=== PATIENT | female | born 1980 | race Caucasian/White ===

== ENCOUNTER 2022-06-23 16:41 | Outpatient (REF) | payer OTHER, SELFPAY ==
[2022-06-23 17:32] LABS: Influenza A PCR NEGATIVE (Negative); Influenza B PCR NEGATIVE (Negative); Resp Syncy Virus RNA Qual PCR NEGATIVE (Negative); SARS COV2 PCR INHOUSE POSITIVE (Negative)
== END 2022-06-23 16:42 | disposition home or self-care (01) ==
LOC: HO.LNP 16:41
PROVIDERS: Visit Provider Nurse Practitioner Family
DX: Z20.822 Contact with and (suspected) exposure to COVID-19 (principal); J06.9 Acute upper respiratory infection, unspecified
CPT/HCPCS: 0241U

== ENCOUNTER 2022-11-20 11:41 | Outpatient (REF) | payer OTHER, SELFPAY ==
--- NOTE | ~2022-11-20 | MM_ITS ---
EXAMINATION: MM SCREENING DIGITAL BREAST TOMOSYNTHESIS, BILATERAL CLINICAL INFORMATION: Screening. Asymptomatic. The lifetime risk of breast cancer based on the Tyrer-Cuzick Model is 8%. COMPARISON: Mammography: 07/05/2020, 01/10/2019 TECHNIQUE: Digital breast tomosynthesis is performed in both the craniocaudal and mediolateral oblique views along with computer-aided detection (CAD). Synthesized 2D images are generated from the tomosynthesis. FINDINGS: There are scattered areas of fibroglandular density (ACR BI-RADS breast composition Category b). There are no significant masses, abnormal calcifications, or other abnormalities. Parenchymal pattern is similar to prior studies. There is no developing density or architectural abnormality. The axilla and skin contours are unremarkable. No significant changes. MM/MM tomosynthesis screening BI IMPRESSION: No mammographic evidence of malignancy. ASSESSMENT: BI-RADS 1: Negative RECOMMENDATION: Routine annual mammography screening. This patient's information was entered into a reminder system with a target due date for their next mammogram.
== END 2022-11-20 11:42 | disposition home or self-care (01) ==
LOC: HO.MAMMO 11:41
PROVIDERS: PCP Internal Medicine; Visit Provider Internal Medicine
DX: Z12.31 Encounter for screening mammogram for malignant neoplasm of breast (principal)
CPT/HCPCS: 77063; 77067

== ENCOUNTER 2023-09-24 12:49 | Emergency (ER) | payer OTHER, SELFPAY ==
--- NOTE | ~2023-09-24 | CT_ITS ---
EXAMINATION: CT ABDOMEN AND PELVIS WITH CONTRAST CLINICAL INFORMATION: Left lower quadrant pain. Rectal bleeding. COMPARISON: Pelvic ultrasound June 29, 2016, December 25, 2014 TECHNIQUE: Multidetector volumetric images were obtained from the superior aspect of the liver through the pubic symphysis following administration 85 mL of Omnipaque 350 intravenous contrast. Sagittal and coronal reformatted images were obtained on the technologist's workstation. Oral contrast: No This CT examination was performed using dose optimization techniques as appropriate, variously including the following: *Automated exposure control *Adjustment of mA and/or kV according to patient size (this includes techniques or standardized protocols for targeted exams where dose is matched to indication/reason for exam; i.e. extremities or head) *Use of iterative reconstruction technique DLP: 678 mGy-cm FINDINGS: LUNG BASES: The visualized lung bases are unremarkable. LIVER, GALLBLADDER, AND BILIARY TREE: The liver is normal in size, shape, and attenuation. No focal hepatic lesion or biliary ductal dilatation is present. The gallbladder is unremarkable with no evidence of radiopaque gallstones, gallbladder wall thickening, or obvious pericholecystic inflammatory changes. PANCREAS: Unremarkable. SPLEEN: Unremarkable. ADRENAL GLANDS: Unremarkable. KIDNEYS AND URETERS: 3 mm nonobstructive stone lower pole of the left kidney. No stone in the right kidney. There is no ureteral calculus. No hydronephrosis. BLADDER: Unremarkable. GASTROINTESTINAL TRACT: No acute abnormality. There is no bowel wall thickening /edema. There is no bowel obstruction. There is a moderate to large volume of stool in the colon. The appendix is normal . The small bowel loops are unremarkable. The stomach is normal. There is no hiatal hernia. ABDOMINAL WALL: No significant hernia is appreciated. LYMPH NODES: Normal. VASCULAR: Unremarkable. PELVIC VISCERA: Uterus may be absent. Enlarged uterus noted on the pelvic ultrasound of June 29, 2016 is not evident on this study. Correlate with history. Within the left anterior pelvis there is an ovoid lesion. Lesion measures 4.2 x 3.2 x 3.4 cm. This has a low-density central region and a mildly hyperintense thin rim. This has a density measurement centrally at 18 Hounsfield units, mildly complex fluid. The collection has no air component. There is some subtle stranding in the adjacent mesenteric fat. This lesion does border the sigmoid colon. Uncertain therefore whether this is related to a left ovarian/adnexal lesion versus a bowel lesion. OSSEOUS STRUCTURES: Unremarkable. CT/CT abdomen pelvis w IV con IMPRESSION: 1. Ovoid lesion in the left anterior pelvis measuring 4.2 x 3.2 x 3.4 cm. Uncertain whether this is related to a left ovarian/adnexal lesion versus a bowel lesion. Consider pelvic ultrasound for further assessment. 2. 3 mm nonobstructive stone lower pole left kidney. Fleischner guidelines were followed.
--- NOTE | ~2023-09-24 | US_ITS ---
EXAMINATION: US PELVIS CLINICAL INFORMATION: Left lower quadrant pain COMPARISON: None available. TECHNIQUE: Ultrasound of the pelvis is performed using both transabdominal and transvaginal transducers along with Doppler. Transvaginal imaging is performed due to inadequate visualization transabdominally. FINDINGS: Uterus: The uterus has been surgically removed. Endovaginal strip is visualized. Adnexa: Right ovary measures 3.5 x 2.6 x 3.1 cm. Volume 14.4 mL. There are multiple complex lesions right ovary. 1. Solid hypoechoic avascular lesion with central cystic area. It measures 2.0 x 1.9 x 2.1 cm. 2. Central lesion with vascular area and irregular borders measuring 1.6 x 1.2 x 1.6 cm. 3. Complex area measuring 1.8 x 1.8 x 1.8 cm and central cystic area measuring 1.2 x 1.4 x 1.4 cm. Previously right ovary measured 3.5 x 2.3 x 2.9 cm and volume 1.7 mL. Left ovary measures 4.9 x 2.8 x 3.4 cm. Volume 24.4 mL. There is a large hypoechoic area measuring 4.6 x 2.5 x 3.2 cm with central echogenicity question hemorrhagic cyst. On Doppler exam there is normal arterial and venous flow seen in both ovaries. There is no free fluid in cul-de-sac. US/US pelvic ovarian doppler IMPRESSION: Enlarged heterogeneous right ovary with multiple complex lesions. 3 major lesions have been measured as described above. Appearance is significantly different from the CT picture. Epithelial lesion such as mucinous or serous adenoma or adenocarcinoma cannot be excluded. Recommend MRI pelvis with and without contrast or a follow-up ultrasound after 2 or 3 cycles if patient still has menses. Hemorrhagic moderate-sized cyst left ovary. Uterus has been surgically removed. No free fluid.
--- NOTE | ~2023-09-24 | US_ITS ---
EXAMINATION: US PELVIS CLINICAL INFORMATION: Left lower quadrant pain COMPARISON: None available. TECHNIQUE: Ultrasound of the pelvis is performed using both transabdominal and transvaginal transducers along with Doppler. Transvaginal imaging is performed due to inadequate visualization transabdominally. FINDINGS: Uterus: The uterus has been surgically removed. Endovaginal strip is visualized. Adnexa: Right ovary measures 3.5 x 2.6 x 3.1 cm. Volume 14.4 mL. There are multiple complex lesions right ovary. 1. Solid hypoechoic avascular lesion with central cystic area. It measures 2.0 x 1.9 x 2.1 cm. 2. Central lesion with vascular area and irregular borders measuring 1.6 x 1.2 x 1.6 cm. 3. Complex area measuring 1.8 x 1.8 x 1.8 cm and central cystic area measuring 1.2 x 1.4 x 1.4 cm. Previously right ovary measured 3.5 x 2.3 x 2.9 cm and volume 1.7 mL. Left ovary measures 4.9 x 2.8 x 3.4 cm. Volume 24.4 mL. There is a large hypoechoic area measuring 4.6 x 2.5 x 3.2 cm with central echogenicity question hemorrhagic cyst. On Doppler exam there is normal arterial and venous flow seen in both ovaries. There is no free fluid in cul-de-sac. US/US pelvic and transvaginal IMPRESSION: Enlarged heterogeneous right ovary with multiple complex lesions. 3 major lesions have been measured as described above. Appearance is significantly different from the CT picture. Epithelial lesion such as mucinous or serous adenoma or adenocarcinoma cannot be excluded. Recommend MRI pelvis with and without contrast or a follow-up ultrasound after 2 or 3 cycles if patient still has menses. Hemorrhagic moderate-sized cyst left ovary. Uterus has been surgically removed. No free fluid.
[2023-09-24 13:08] VITALS: BP 146/90; PULSE 89; RESP 20; TEMP 36.8; O2SAT 97; BMI 30.1
--- NOTE | 2023-09-24 13:10 | ED.GENADULT ---
HPI - General Adult General Chief complaint: General Medical Stated complaint: Left Quadrant Pain sent By Dr Shane Seen by Provider: 09/24/23 13:39 Source: patient Mode of arrival: ambulatory Limitations: no limitations History of Present Illness HPI narrative: 43-year-old female w history of asthma presents for evaluation of lower abdominal pain and blood in stools x 3 weeks. The pain is worst in the LLQ and is alleviated by having bowel movements. She originally noted the blood intermittently on toilet paper after wiping, but this week she has noticed it in the toilet bowel and streaked in the stool every day. She denies constipation and diarrhea. No fevers, chills, nausea, or vomiting. No chest pain, palpitations, or SOB. No dysuria or hematuria. No vaginal bleeding. Her family history is notable for colitis on her mother's side, and colorectal and endometrial cancer on her father's side. Her surgical history is remarkable for an ovary sparing hysterectomy. She has never had a colonoscopy before. She was sent here by the provider at urgent care for tenderness to palpation of her abdomen. Related Data Home Medications Medication Instructions Recorded Confirmed albuterol sulfate 90 mcg/actuation 2 puff inhalation Q6H PRN 04/11/21 06/23/22 aerosol inhaler (Ventolin HFA) Previous Rx's Medication Instructions Recorded dextromethorphan HBr 20 mg/15 mL 20 mg (15 mL) PO DAILY@1000,2200 06/23/22 oral solution PRN cough 7 days #118 mL fluticasone propionate 50 1 spray intranasal Q12H 30 days 06/23/22 mcg/actuation nasal #16 grams spray,suspension (Flonase Allergy Relief) Allergies Allergy/AdvReac Type Severity Reaction Status Date / Time codeine [Codeine] Allergy Unknown AGITATION Verified 06/23/22 14:37 amoxicillin [Augmentin] AdvReac Unknown rash Verified 06/23/22 14:37 clavulanic acid [Augmentin] AdvReac Unknown rash Verified 06/23/22 14:37 Codeine Sulfate AdvReac Unknown can't sleep Uncoded 06/23/22 14:37 Review of Systems Review of Systems: Constitutional : No Weight loss, No Fever, No Chills ENT/Mouth :? No sore throat, No Rhinorrhea Eyes: No Swelling, No Redness Cardiovascular : No Chest Pain, No SOB, No Edema Respiratory : No Cough, No Sputum, No Wheezing Gastrointestinal : No Nausea, No Vomiting, No Diarrhea, +abdominal Pain, + Hematochezia Genitourinary : No Dysuria, No Urinary Frequency, No Hematuria, No Urgency Musculoskeletal : No joint pain, No Myalgias, No Joint Swelling Skin : No Skin Lesions, No rash Neuro : No Weakness, No Numbness, No Dizziness, No Headache All other systems reviewed and are negative. Yes all other systems are reviewed and are negative [facility] Social History Social History Advance Directives: No Advance Directives Information Provided: No Patient : No Physical Exam ED Vital Signs: Vital Signs - 24 hr 09/24/23 13:08 09/24/23 13:33 09/24/23 15:32 Temperature 98.2 F 98.3 F Pulse Rate 89 87 79 Respiratory Rate 20 18 16 Blood Pressure 146/90 H 149/80 H 137/88 Pulse Oximetry 97 100 99 Oxygen Delivery Method Room Air Room Air Room Air BMI result Body Mass Index 30.1 vss Appearance: Alert.? Oriented X3.? No acute distress.? Head: Normocephalic, atraumatic, no step-offs or deformities Neck: Normal inspection.? Neck supple.? CVS: Normal heart rate and rhythm.? Pulses normal.? Respiratory: No respiratory distress.? Breath sounds normal.? Abdomen: Soft and nontender. LLQ mass noted on palpation.?Normoactive bowel sounds in all 4 quadrants. Negative Corrales's, McBurney's, and Rosving sign. No guarding or rebound tenderness. Skin: Skin warm and dry.? Normal skin color.? Normal skin turgor.? Extremities: No lower extremity edema.? No calf ttp. 5/5 strength to bilateral upper and lower extremities. 2+ peripheral pulses bilaterally. Back: No midline tenderness, no C-spine tenderness, full range of motion, no CVA tenderness bilaterally Neuro: Oriented X 3.? No motor deficit.? No sensory deficit. CN 2-12 intact Course Course Course Narrative: RME performed by Norma Ramos PA-C. Patient is a 43 year old assigned female at presenting to the emergency department with bright red blood in her stools and left lower quadrant abdominal pain. Labs ordered. Patient placed back in the waiting room pending room availability and results. Reevaluation(s) Reevaluation #1: CBC unremarkable. Stable H&H. Chemistry no acute findings requiring intervention. UA without infection. Viral testing negative. CT abdomen pelvis ovoid lesion left anterior pelvis, uncertain whether it is ovarian or sigmoid. Ultrasound ordered. Patient trying to give stool sample Sign out to Tor Espinoza PA-C Time: 15:56 Reevaluation #2: Received sign-out with the patient stable condition pending ultrasound. Time: 16:04 Reevaluation #3: Ultrasound returned demonstrating multiple lesions on the right ovary. She is status post hysterectomy. Patient is currently feeling well at this time. She denies any abdominal pain, nausea or vomiting. Patient states that she has a PCP at the [facility], Dr. John. She does not have a current OBGYN. I had an extensive discussion with the patient regarding the importance of close follow-up as well as ultrasound findings which could be benign or malignant, that this is not able to be determined today but important for close follow-up for definitive cause. The patient expresses understanding of this. She feels comfortable with discharge plan home. She will call her PCP on Wednesday as well as OBGYN referral. No further questions at this time. Time: 17:18 Medications Administered Discontinued Medications Generic Name Dose Route Start Last Admin Trade Name Freq PRN Reason Stop Dose Admin Iohexol 85 ml 09/24/23 14:47 09/24/23 14:47 Iohexol 350 Mg/Ml 100 Ml Infus..Btl IV 09/24/23 14:48 85 ml ONCE ONE Administration Medical Decision Making Medical Decision Making MDM Narrative: 43-year-old female presents with abdominal pain LLQ > RLQ and rectal bleeding x 3 weeks. No fevers, chills, or vomiting. PE: LLQ mass noted on palpation of the abdomen. ?No tenderness, rebound, or guarding. History and physical concerning for diverticulitis, hemorrhoids, IBD, IBS, unlikely appendicitis, pancreatitis, cholecystitis, toxic zhang colon, colitis, acute abdomen, malignancy Plan: Labs, imaging, UA Differential Diagnosis Differential Diagnoses: The differential diagnosis associated with the presentation includes History and physical concerning for diverticulitis, hemorrhoids, IBD, IBS, unlikely appendicitis, pancreatitis, cholecystitis, toxic zhang colon, colitis, acute abdomen, malignancy Admission/Observation Consideration of admission/observation: Escalation of care including admission/observation considered posisble Lab Data 09/24/23 13:28 09/24/23 13:28 Labs: Lab Results 09/24/23 09/24/23 09/24/23 Range/Units 13:26 13:28 13:47 WBC 9.0 (4.8-10.8) X10*3/uL RBC 4.65 (4.20-5.50) X10*6/uL Hgb 14.4 (12.0-16.0) g/dl Hct 41.9 (37.0-47.0) % MCV 90.1 (80.0-98.0) fL MCH 31.0 (27.0-33.0) pg MCHC 34.4 (31.0-35.0) g/dl RDW 12.2 (11.0-16.0) % Plt Count 209 (160-400) X10*3/uL MPV 10.2 (9.4-12.3) fL Immature Gran % (Auto) 0.3 (0.0-0.4) % Neut % (Auto) 64.8 (45-73) % Lymph % (Auto) 27.7 (20-40) % Guthrie % (Auto) 5.5 (2-11) % Eos % (Auto) 1.4 (0-4) % Baso % (Auto) 0.3 (0-2) % Lymph # (Auto) 2.5 (1.2-4.9) X10*3/uL Guthrie # (Auto) 0.5 (0.1-1.2) X10*3/uL Eos # (Auto) 0.1 (0.0-0.4) X10*3/uL Baso # (Auto) 0.0 (0.0-0.2) X10*3/uL Abs Immat Gran (auto) 0.03 (0.00-0.03) X10*3/uL Absolute Neuts (auto) 5.8 (2.0-8.3) x10*3/uL Absolute Nucleated RBC 0.000 (0.0-0.012) X10*3/uL Nucleated RBC % (auto) 0.0 (0.0-0.2) /100WBC Sodium 139 (135-145) mmol/L Potassium 3.7 (3.3-5.1) mmol/L Chloride 107 (96-108) mmol/L Carbon Dioxide 25 (22-29) mmol/L Anion Gap 11 L (12-20) BUN 8 L (9-16) mg/dL Creatinine 0.77 (0.5-1.4) mg/dL Estim Creat Clear Calc 90.7 Estimated GFR > 60 Random Glucose 84 (60-115) mg/dL Calcium 9.0 (8.4-10.2) mg/dL Magnesium 2.0 (1.6-2.6) mg/dL Total Bilirubin 0.4 (0.0-1.0) mg/dL AST 15 (5-31) U/L ALT 13 (0-31) U/L Alkaline Phosphatase 58 (39-117) U/L Total Protein 6.9 (6.5-8.0) g/dL Albumin 4.1 (3.5-5.0) g/dL Urine Color Yellow Urine Appearance Clear Urine pH 6.0 (5.0-9.0) Ur Specific [place] 1.020 (1.005-1.025) Urine Protein Negative (Neg-Trace) mg/dL Urine Glucose (UA) Negative (Negative) mg/dL Urine Ketones 40 (Negative) mg/dL Urine Blood Moderate (2+) H (Negative) Urine Nitrite Negative (Negative) Ur Leukocyte Esterase Negative (Negative) Urine RBC >20 H (0-2) /HPF Urine WBC 0-5 (0-5) /HPF Ur Squamous Epith Cells 6-10 (0-2) /HPF Urine Bacteria Trace (None Seen) Hyaline Casts 0-2 (0-2) /LPF Influenza Type A (PCR) NEGATIVE (Negative) Influenza Type B (PCR) NEGATIVE (Negative) RSV RNA Qual (PCR) NEGATIVE (Negative) SARS-CoV-2 RNA (RT-PCR) NEGATIVE (Negative) Critical Care Time Critical Care Time Critical Care Time: No Discharge Plan Discharge Clinical Impression: Abdominal pain, BRBPR (bright red blood per rectum), Ovary anomaly Patient Disposition: Home, Self-Care Instructions: Rectal Bleeding (ED), Abdominal Pain (ED) Additional Instructions: Your ultrasound today shows lesions on the right ovary. It is unclear at this time what the exact diagnosis is and therefore he will need very close follow-up. Radiologist has recommended MRI of the pelvis with and without contrast for further evaluation. Follow-up with your primary care provider. Call 1st thing Wednesday morning to schedule appointment to be seen this week. Follow-up with the OBGYN referral, Dr. Kwon. Call 1st thing Wednesday morning to schedule appointment to be seen this week. Take your medications as prescribed. If you were prescribed antibiotics today, it is important that you take your medication to their entirety, do not skip any doses, do not finish them early. Follow-up with your primary care provider this week. Return to the emergency department with new or worsening symptoms. Such as fevers, chills, chest pain, shortness of breath, nausea, vomiting, dizziness, headache, vision changes, lethargy In case of emergency call 911 Please follow-up with GI and OBGYN information below Prescriptions: No Action albuterol sulfate [Ventolin HFA] 90 mcg/actuation HFA aerosol inhaler 2 puff inhalation Q6H PRN fluticasone propionate [Flonase Allergy Relief] 50 mcg/actuation spray,suspension 1 spray intranasal Q12H 30 Days Qty: 16 0RF Rx Instructions: administer into each nostril dextromethorphan HBr 20 mg/15 mL solution 20 mg PO DAILY@1000,2200 PRN (Reason: cough) 7 Days Qty: 118 0RF Rx Instructions: Daily at HS Referrals: [facility] [Provider Group] - 1 day Kusum Regan MD [Primary Care Provider] - 2 days Ayo Kwon MD [Physician] - 1 day Stand Alone Forms: Work/School Release
[2023-09-24 13:33] VITALS: BP 149/80; PULSE 87; RESP 18; TEMP 36.8; O2SAT 100
[2023-09-24 13:34] LABS: MANUAL DIFF FLAG NO
[2023-09-24 13:36] LABS: Basophils Percent Auto 0.3 % (0-2); Eosinophils Absolute Auto 0.1 X10*3/uL (0.0-0.4); Eosinophils Percent Auto 1.4 % (0-4); Hematocrit 41.9 % (37.0-47.0); Hemoglobin 14.4 g/dl (12.0-16.0); Imm Gran Abs Auto 0.03 X10*3/uL (0.00-0.03); Imm Gran Pct Auto 0.3 % (0.0-0.4); Lymphocytes Absolute Auto 2.5 X10*3/uL (1.2-4.9); Lymphocytes Percent Auto 27.7 % (20-40); Mean Corpuscular HGB Conc 34.4 g/dl (31.0-35.0); Mean Corpuscular Volume 90.1 fL (80.0-98.0); Mean Platelet Volume 10.2 fL (9.4-12.3); Monocytes Absolute Auto 0.5 X10*3/uL (0.1-1.2); Monocytes Percent Auto 5.5 % (2-11); Neutrophils Absolute Auto 5.8 x10*3/uL (2.0-8.3); Neutrophils Percent Auto 64.8 % (45-73); Platelet Count 209 X10*3/uL (160-400); Red Blood Count 4.65 X10*6/uL (4.20-5.50); Red Cell Distribution Width 12.2 % (11.0-16.0)
--- NOTE | 2023-09-24 13:37 | PC.NURSE ---
a&ox4, vss and up to date. pt comes in today d/t 02/17 left lower abdominal pain. radiates across entire lower abdomen. pt verbalizes bright red blood in stool since thanks. pt attempted to see PCP - no appts. went to urgent care where she was then sent here. denies n/v/d/any urinary sx. tender upon palpation. respirations even/unlabored. call bel placed within reach.
--- NOTE | 2023-09-24 13:47 | PC.NURSE ---
provide bedside assessing pt. urine obtained/sent to lab.
[2023-09-24 14:00] LABS: Appearance Urine Clear; Color Urine Yellow; Glucose Urine UA Negative (Negative); Leukocyte Esterase Urine Negative (Negative); Nitrite Urine Negative (Negative); UMIC TRIGGER UACC YES; Urine Blood Moderate (2+) (Negative); Urine Ketones 40 mg/dL (Negative); Urine Protein Negative (Neg-Trace)
[2023-09-24 14:02] LABS: Alanine Aminotransferase 13 U/L (0-31); Albumin Level 4.1 g/dL (3.5-5.0); Alkaline Phosphatase 58 U/L (39-117); Anion Gap 11 (12-20); Aspartate Amino Transferase 15 U/L (5-31); Bilirubin Total 0.4 mg/dL (0.0-1.0); Blood Urea Nitrogen 8 mg/dL (9-16); Carbon Dioxide 25 mmol/L (22-29); Chloride 107 mmol/L (96-108); Creatinine Clr Calc Pharmacy 90.7; Estimated Glomerular Filt Rate > 60; Glucose Random 84 mg/dL (60-115); Potassium 3.7 mmol/L (3.3-5.1); Sodium 139 mmol/L (135-145); Total Protein 6.9 g/dL (6.5-8.0)
[2023-09-24 14:05] LABS: Bacteria Urine Trace (None Seen); Hyaline Casts Urine 0-2 /LPF (0-2); RBC Urine >20 /HPF (0-2); WBC Urine 0-5 /HPF (0-5)
--- NOTE | 2023-09-24 14:06 | PC.NURSE ---
20gIV placed in the right AC w/o complications - pt waiting to go to CT at this time.
[2023-09-24 14:12] LABS: Influenza A PCR NEGATIVE (Negative); Influenza B PCR NEGATIVE (Negative); Resp Syncy Virus RNA Qual PCR NEGATIVE (Negative); SARS COV2 PCR INHOUSE NEGATIVE (Negative)
[2023-09-24] MEDS: iohexoL 350 MG/ML 100 ML INFUS..BTL 85 ML IV (14:47)
[2023-09-24 15:32] VITALS: BP 137/88; PULSE 79; RESP 16; O2SAT 99
--- NOTE | 2023-09-24 15:33 | PC.NURSE ---
vss and up to date at this time. pt verbalizing pain level decreased to a 2/10 at this time. pt awaiting results from CT at this time. respirations remain even/unlabored. call marie placed within reach.
--- NOTE | 2023-09-24 15:50 | PC.NURSE ---
pt speaking w/ providers about results of CT at this time - pt aware of plan of care.
--- NOTE | 2023-09-24 15:55 | PC.NURSE ---
pt to US at this time.
== END 2023-09-24 17:51 | disposition home or self-care (01) ==
PROVIDERS: Physician Assistant Medical; Emergency Provider Emergency Medicine Emergency Medical Services; PCP Internal Medicine
DX: R10.32 Left lower quadrant pain (principal); R10.31 Right lower quadrant pain; K92.1 Melena; N83.9 Noninflammatory disorder of ovary, fallopian tube and broad ligament, unspecified; Z20.822 Contact with and (suspected) exposure to COVID-19; Z20.828 Contact with and (suspected) exposure to other viral communicable diseases; Z79.899 Other long term (current) drug therapy
CPT/HCPCS: 0241U; 74177; 76830; 76856; 80053; 81001; 83735; 85025; 93975; 99284; Q9967

== ENCOUNTER 2023-10-01 09:01 | Outpatient (AMB) | payer OTHER, SELFPAY ==
[2023-10-01 09:04] VITALS: BP 110/70; PULSE 86; O2SAT 97; BMI 30.5
--- NOTE | 2023-10-01 09:04 | MHC.PC.OV ---
Vital Signs 10/01/23 09:04 Height 5 ft 3 in Weight 172 lb BMI 30.5 BP 110/70 Blood Pressure Location Rt brachial Position Sitting Pulse 86 Pulse Source Pulse Oximeter Pulse Oximetry (%) 97 Oxygen Delivery Method Room Air Intake Visit Reasons: Re-Est care Seen in [facility] Intake Note: pt is here for re establish care Campaign Associate Required: No Accompanied by: Self / Same As Patient Allergies codeine [Codeine] Allergy (Unknown, Verified 10/05/23 00:02) AGITATION amoxicillin [Augmentin] Adverse Reaction (Unknown, Verified 10/05/23 00:02) rash clavulanic acid [Augmentin] Adverse Reaction (Unknown, Verified 10/05/23 00:02) rash Codeine Sulfate Adverse Reaction (Unknown, Uncoded 10/05/23 00:02) can't sleep Medication List - Last Reconciled 10/04/23 by Kusum Regan MD albuterol sulfate 90 mcg/actuation (Ventolin HFA) 2 puffs inhalation Q6H PRN Tobacco use date assessed: 10/01/23 Dental Screening Dental Screen Date: 10/01/23 Did you have a dental visit in the last 12 months?: Yes Did you have a dental problem in the last 6 months where you did not have access to dental care?: No Was dental information given to patient?: Patient has dentist HPI Re-Est care Seen in [facility] HPI Details 43-year-old female with history of bronchial asthma, here today for follow-up after recent ER , where she presented with left lower quadrant pain accompanied by bloody stool, which has been present now for the last 3 weeks. Patient states that initially, she with notice blood streaks on toilet paper after defecation, but 3 days prior to visit patient has been noticing more blood now present in toilet bowl . She denies constipation and diarrhea, no fevers, chills, nausea, or vomiting, no chest pain, palpitations, or SOB, no dysuria or hematuria, no vaginal bleeding. Patient states that left lower quadrant pain is alleviated by passage of a bowel movement. Her family history is notable for colitis on her mother's side, and colorectal and endometrial cancer on her father's side. Her surgical history is remarkable for an ovary sparing hysterectomy. She has never had a colonoscopy. At the ER,CBC unremarkable, stable hemoglobin hematocrit, no acute finding seen on chemistry or urinalysis, viral testing was negative. CT abdomen pelvis showed an ovoid lesion left anterior pelvis, uncertain whether it is ovarian or sigmoid. Ultrasound showed multiple lesions on the right ovary. At present patient states that she still experiencing pain in her left lower quadrant, but no further episodes of bloody stools. Patient contacted OBGYN and states that they could see her within the next 7 days if referral sent. [facility] Medical History (Updated 10/01/23 @ 10:00 by Kusum Regan MD) Family history of colon cancer Left lower quadrant abdominal tenderness with rebound tenderness Complex cyst of right ovary Hemorrhagic cyst of left ovary Surgical History (Updated 10/01/23 @ 09:11 by Aiden Barba [facility]) History of wisdom tooth extraction, class II edentulism History of partial hysterectomy Hx of section Family History (Updated 10/01/23 @ 09:13 by Aiden Barba CMA) Father Parkinson disease TIA (transient ischemic attack) High blood pressure Mother Diabetes High blood pressure Social History (Updated 10/01/23 @ 09:13 by Aiden Barba [facility]) Housing: House Alcohol intake: current Alcohol intake frequency: holidays/special occasions only Alcohol type: hard liquor Patient Tobacco Use Status: Never used Tobacco e-Cigarette/Vaping Use: Never Used service: No Current occupational status: employed 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 1. Little interest or pleasure in doing things: not at all 2. Feeling down, depressed, or hopeless: not at all 3. Trouble falling or staying asleep, or sleeping too much: not at all 4. Feeling tired or having little energy: not at all 5. Poor appetite or overeating: not at all 6. Feeling bad about yourself - or that you are a failure or have let yourself or your family down: not at all 7. Trouble concentrating on things, such as reading the newspaper or watching television: not at all 8. Moving or speaking so slowly that other people could have noticed. Or the opposite - being so fidgety or restless that you have been moving around a lot more than usual: not at all 9. Thoughts that you would be better off or of hurting yourself in some way: not at all Total score: 0 Depression Screening Interpretation: Negative Depression Screening Done: Yes 50904 - PHQ-9 Billing: Yes Source: Developed by Drs. Terry Woods, Luiza Gale, Silvano Espinoza and colleagues, with an educational sarah from [employer]. Thrive Questionnaire Date Thrive assessed: 10/01/23 I am a: Patient What is your living situation today?: I have a steady place to live Within the past 12 months, did the food you bought not last and you didn't have the money to get more?: Never true Within the past 12 months, did you worry whether your food would run out before you got money to buy more?: Never true Do you have trouble paying for medicines?: No Do you have trouble getting transportation to medical appointments?: No Do you have trouble paying your heating and electricity bill?: No Do you have trouble taking care of your child, family member or friend?: No Do you have trouble with day-to-day activities such as bathing, preparing meals, shopping, managing finances, etc.?: No Are you currently unemployed and looking for a job?: No Are you interested in more education?: No Please select the resources that you would like help with: None Currently or been in a relationship where the following occur: no concerns reported AUDIT C Alcohol Use Questionnaire (AUDIT-C) 1. How often do you have a drink containing alcohol?: Monthly or less 2. How many drinks containing alcohol do you have on a typical day when you are drinking?: 1 or 2 3. How often do you have six or more drinks on one occasion?: Never Total Score: 1 Score Reviewed/Action Taken: Yes KJ-7 AMB Questionnaire KJ-7 Date KJ - 7 assessed: 10/01/23 Feeling nervous, anxious, or on edge: 0 = Not at all Not being able to stop or control worryin = Not at all Worrying too much about different things: 0 = Not at all Trouble relaxin = Not at all Being so restless that it is hard to sit still: 0 = Not at all Becoming easily annoyed or irritable: 0 = Not at all Feeling afraid as if something awful might happen: 0 = Not at all Total KJ-7 score (0-4 normal; 5-9 mild; 10-14 moderate; 15-21 severe): 0 Source: Developed by Drs. Terry Woods, Luiza Gale, Silvano Espinoza and colleagues, with an educational sarah from [employer]. KJ-7 Assessment Billing KJ-7 Assessment Tool: KJ-7 Assessment 96335 Review of Systems Const Denies fatigue, Denies headache(s) and Denies weakness ENT Denies dizziness, Denies headache(s), Denies nasal congestion, Denies nasal discharge and Denies sore throat Card Denies chest pain, Denies lightheadedness, Denies palpitations and Denies dyspnea Resp Denies cough and Denies dyspnea GI Denies change in bowel habits and Denies heartburn Denies hematuria, Denies urinary frequency, Denies dysuria and Denies urinary urgency Neuro Denies dizziness, Denies headache(s) and Denies weakness Endo Denies fatigue, Denies polydipsia, Denies polyuria and Denies palpitations Ramos/Lymph Reports no additional complaints Physical exam (Primary Care) Vital Signs: Last Vital Signs Pulse 86 10/01/23 09:04 BP 110/70 10/01/23 09:04 Pulse Ox 97 10/01/23 09:04 Oxygen Delivery Method Room Air 10/01/23 09:04 BMI result Body Mass Index 30.5 Tobacco/Smoking Status: Tobacco use Status Tobacco use date assessed 10/01/23 10/01/23 09:05 Patient Tobacco Use Status Never used Tobacco 10/01/23 09:13 e-Cigarette/Vaping Use Never Used 10/01/23 09:13 PHQ-9: PHQ-9 Score PHQ-9: Total score 0 10/05/23 00:02 Depression Screening Interpretation: Negative Thrive Assessment: Date of Thrive Assessment Date Thrive assessed 10/01/23 10/01/23 09:16 Currently or been in a relationship where the following occur: no concerns reported Const General: no acute distress and alert Orientation/consciousness: patient oriented x3 HENMT Mouth: Normal oral and palatal mucosa present, oropharynx normal and moist mucous membranes Eyes General: appearance normal, both eyes and all related structures Conjunctivae: conjunctivae normal Sclerae: sclerae normal Pupils: Equal, round and reactive pupils present EOM: EOMs intact bilaterally Neck Neck: Yes full ROM, Yes no lymphadenopathy and Yes supple Resp Effort & Inspection: normal respiratory effort and able to speak in complete sentences Auscultation: clear to auscultation bilaterally Cardio Rate: regular rate Rhythm: regular rhythm Heart sounds: S1 normal heart sound present and S2 normal heart sound present GI Palpation (GI): Soft to palpation, Tenderness to palpation present (GI) in the LLQ and no masses Auscultation: normal bowel sounds Rectal Exam - Female: normal sphincter tone, No External hemorrhoid(s) present and No mass General: Yes no CVA tenderness Back/Spine/Pelvis Back: no CVA tenderness and No back tenderness Neuro General: patient oriented x3, gait normal, tone normal, moves all extremities, Normal light touch and pain sensation and no focal motor deficits Cranial nerves: Yes CN's II-XII intact bilaterally and Yes Equal, round and reactive pupils present Cognition (Neuro): normal cognition Assessment and Plan Assessment & Plan (1) Complex cyst of right ovary: Code(s): N83.291 - Other ovarian cyst, right side (2) Hemorrhagic cyst of left ovary: Code(s): N83.202 - Unspecified ovarian cyst, left side (3) Left lower quadrant abdominal tenderness with rebound tenderness: Code(s): R10.824 - Left lower quadrant rebound abdominal tenderness (4) BRBPR (bright red blood per rectum): Code(s): K62.5 - Hemorrhage of anus and rectum Plan Stat referral ordered toes OBGYN for further evaluation management, patient requests referral to [facility] who she has already called, and states that they will be able to see her within the next 7 days if referral as is sent. GI consult also obtained for further evaluation Patient advised to go to the ER if any worsening of symptoms, bloody stools, accompanied by lightheadedness, chest pain, shortness of breath or palpitations. Orders: Referrals HAIR DESIGNER Referral N83.202 - Unspecified ovarian cyst, left side, N83.291 - Other ovarian cyst, right side, R10.824 - Left lower quadrant rebound abdominal tenderness Gastroenterology Referral K62.5 - Hemorrhage of anus and rectum, R10.824 - Left lower quadrant rebound abdominal tenderness, Z80.0 - Family history of malignant neoplasm of digestive organs Coding Level of Care Code Est Pt Level 4 (11838) Diagnoses Complex cyst of right ovary N83.291 Hemorrhagic cyst of left ovary N83.202 Left lower quadrant abdominal tenderness with rebound tenderness R10.824 BRBPR (bright red blood per rectum) K62.5 Additional Codes KJ-7 Assessment Billing - KJ-7 Assessment Tool: KJ-7 Assessment 66605 ([id number])
== END 2023-10-01 11:38 | disposition home or self-care (01) ==
PROVIDERS: PCP Internal Medicine; Visit Provider Internal Medicine
DX: N83.291 Other ovarian cyst, right side (principal); N83.202 Unspecified ovarian cyst, left side; R10.824 Left lower quadrant rebound abdominal tenderness; K62.5 Hemorrhage of anus and rectum
CPT/HCPCS: 99214

== ENCOUNTER 2023-11-15 14:00 | Outpatient (AMB) | payer OTHER, SELFPAY ==
[2023-11-15 14:08] VITALS: BP 120/70; PULSE 87; BMI 31.9
--- NOTE | 2023-11-15 14:08 | A.OFFVIS_ITS ---
Intake Vital Signs 11/15/23 14:08 Height 5 ft 3 in Weight 180 lb 5.41 oz BMI 31.9 BP 120/70 Blood Pressure Location Rt brachial Position Sitting Pulse 87 Intake Visit Reasons: Hemorrhage of anus and rectum Intake Note: Patient presents to in office visit today as a new patient for rectal bleeding. CC:Patient states that before she began seeing blood when wiping after BMs. She went to an Urgent care center because she was also having LLQ abdominal pain. She was advised to go to the ER and she came to the ER in September. After this she was seeing at [facility] and found to have some small follicles on her ovaries. She c/o a lot of gas, occasional abdominal discomfort, and that when she has a BM she sees blood in the toilet water. She also has noticed seeing like fleshy pieces in the toilet. She states the bleeding is now happening every time she has a BM. Cad Application Support Specialist Required: No Accompanied by: Self / Same As Patient Allergies codeine [Codeine] Allergy (Unknown, Verified 11/15/23 14:15) AGITATION amoxicillin [Augmentin] Adverse Reaction (Unknown, Verified 11/15/23 14:15) rash clavulanic acid [Augmentin] Adverse Reaction (Unknown, Verified 11/15/23 14:15) rash Codeine Sulfate Adverse Reaction (Unknown, Uncoded 10/05/23 00:02) can't sleep HPI HPI Comments History of Present Illness Details 43y.o F with no significant PMH who is h ere for rectal bleeding and abnormal imaging. Pt was seen in ER in Sep for LLQ pain and was found to have rectal wall thickening and ovarian cysts. The ovarian cysts have been deemed benign after MRI pelvis was reviewed by [facility] celery cutter-onc. In terms of her rectal bleeding, first started in Aug 2023, initially only occasionally but since september has been noticing it daily with BMs. The stool itself is normal colored but has blood smeared on top. Has occ seen clots as well. No changes in stool itself. No fevers, chills, unintentional weight loss. When she had MRI in Oct ([facility] [place]) it demonstrated mild rectal wall thickening. Paternal aunt: colorectal ca at 42y.o - within weeks of diagnosis. [facility] Medical History (Updated 11/15/23 @ 14:41 by Sheila Mae MD) Family history of colon cancer Left lower quadrant abdominal tenderness with rebound tenderness Complex cyst of right ovary Hemorrhagic cyst of left ovary Surgical History (Updated 10/01/23 @ 09:11 by Aiden Barba CMA) History of wisdom tooth extraction, class II edentulism History of partial hysterectomy Hx of section Family History (Updated 11/15/23 @ 14:14 by PATRICIA Anderson) Father Parkinson disease TIA (transient ischemic attack) High blood pressure Mother Diabetes High blood pressure Paternal Aunt Colon cancer Social History (Updated 10/01/23 @ 09:13 by Aiden Barba [facility]) Housing: House Alcohol intake: current Alcohol intake frequency: holidays/special occasions only Alcohol type: hard liquor Patient Tobacco Use Status: Never used Tobacco e-Cigarette/Vaping Use: Never Used service: No Current occupational status: employed 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[employer],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 Current occupational exposures/hazards: No Cognitive needs: No Hearing needs: No Vision needs: No Review of Systems Const All systems reviewed & are unremarkable except as noted in HPI and below Physical Exam Vital Signs: Last Vital Signs Pulse 87 11/15/23 14:08 BP 120/70 11/15/23 14:08 BMI result Body Mass Index 31.9 Gen appear: NAD, well nourished HEENT: no icterus, no cervical lymphadenopathy Chest: clear to auscultation CVS: Regular S1/S2 Abd: soft, nontender, nondistended Ext: no peripheral edema Neuro: A/Ox3, noted to move all extremities spontaneously Assessment & Plan Assessment & Plan (1) Left lower quadrant abdominal tenderness with rebound tenderness: Code(s): R10.824 - Left lower quadrant rebound abdominal tenderness (2) BRBPR (bright red blood per rectum): Code(s): K62.5 - Hemorrhage of anus and rectum (3) Proctitis: Code(s): K62.89 - Other specified diseases of anus and rectum Plan Ddx include hemorrhoidal bleeding, AVMs, inflammatory proctitis, mass. Will set her up for diagnostic colonoscopy in the next 4-6 weeks. Split PEG prep Rxed and instructions reviewed. Follow up after colo. Medications: New peg 3350-electrolytes 236-22.74-6.74 -5.86 gram (Golytely) as per split prep instructions, until fecal effluent is clear 240 mL PO Q10M 4,000 mL 0RF colonoscopy Coding Level of Care Code New Pt Level 4 (82130) Diagnoses Left lower quadrant abdominal tenderness with rebound tenderness R10.824 BRBPR (bright red blood per rectum) K62.5 Proctitis K62.89
== END 2023-11-15 15:47 | disposition home or self-care (01) ==
PROVIDERS: PCP Internal Medicine; Visit Provider Internal Medicine
DX: R10.824 Left lower quadrant rebound abdominal tenderness (principal); K62.5 Hemorrhage of anus and rectum; K62.89 Other specified diseases of anus and rectum
CPT/HCPCS: 99204

== ENCOUNTER → 2023-11-15 14:00 | Outpatient (BNVA) | payer OTHER, SELFPAY | PROVIDERS: PCP Internal Medicine; Visit Provider Internal Medicine | DX: K62.5 Hemorrhage of anus and rectum (principal); K62.89 Other specified diseases of anus and rectum; R10.824 Left lower quadrant rebound abdominal tenderness | CPT/HCPCS: 99202 ==

== ENCOUNTER 2023-11-25 10:51 | Outpatient (REF) | payer OTHER, SELFPAY | END 2023-11-25 10:52 | disposition home or self-care (01) | LOC: HO.MAMMO 10:51 | PROVIDERS: Visit Provider Internal Medicine | DX: Z12.31 Encounter for screening mammogram for malignant neoplasm of breast (principal) | CPT/HCPCS: 77063; 77067 ==

== ENCOUNTER → 2023-11-25 11:00 | Outpatient (BNV) | payer OTHER, SELFPAY | PROVIDERS: Visit Provider Radiology Diagnostic Radiology | DX: Z12.31 Encounter for screening mammogram for malignant neoplasm of breast (principal) | CPT/HCPCS: 77063; 77067 ==

== ENCOUNTER 2023-12-14 07:39 | Day surgery (SDC) | payer OTHER, SELFPAY ==
[2023-12-10 09:56] VITALS: BMI 31.9
--- NOTE | 2023-12-10 15:27 | P.CONAN_ITS ---
HPI - Anesthesia Eval Consult details Narrative: 43yo F for Colonoscopy [facility] Active Problems Active Problems: All Active Problems (Updated 12/10/23 @ 09:54 by Rachana Benavides RN) Proctitis (Acute) Viral upper respiratory illness (Acute) Acute sinusitis (Acute) Family history of colon cancer (Acute) Left lower quadrant abdominal tenderness with rebound tenderness (Acute) Complex cyst of right ovary (Acute) Hemorrhagic cyst of left ovary (Acute) Past Medical History Medical History (Updated 12/10/23 @ 09:54 by Rachana Benavides RN) Asthma Family history of colon cancer Left lower quadrant abdominal tenderness with rebound tenderness Complex cyst of right ovary Hemorrhagic cyst of left ovary Family History Family History (Updated 11/15/23 @ 14:14 by Willis Kennedy [facility]) Father Parkinson disease TIA (transient ischemic attack) High blood pressure Mother Diabetes High blood pressure Paternal Aunt Colon cancer Surgical History Surgical History (Updated 10/01/23 @ 09:11 by Aiden Barba CMA) History of wisdom tooth extraction, class II edentulism History of partial hysterectomy Hx of section Social History Social History (Updated 10/01/23 @ 09:13 by Aiden Barba CMA) Housing: House Alcohol intake: current Alcohol intake frequency: holidays/special occasions only Alcohol type: hard liquor Patient Tobacco Use Status: Never used Tobacco e-Cigarette/Vaping Use: Never Used service: No Current occupational status: employed 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[employer],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 Current occupational exposures/hazards: No Cognitive needs: No Hearing needs: No Vision needs: No Meds Allergies Allergy/AdvReac Type Severity Reaction Status Date / Time codeine [Codeine] Allergy Intermediate AGITATION Verified 12/10/23 09:51 amoxicillin [Augmentin] AdvReac Intermediate rash Verified 12/10/23 09:51 clavulanic acid [Augmentin] AdvReac Intermediate rash Verified 12/10/23 09:51 Home Medications Medication Instructions Recorded Confirmed Last Taken Type albuterol sulfate 90 mcg/actuation 2 puff inhalation Q6H PRN 04/11/21 12/10/23 Unknown History aerosol inhaler (Ventolin HFA) Shortness Of Breath Or Wheezing Exam Height,Weight and Vital Signs: Height 5 ft 3 in Weight 81.647 kg Pertinent Lab Results Pertinent Lab Results: Laboratory Tests 09/24/23 13:28 WBC 9.0 Hgb 14.4 Hct 41.9 Plt Count 209 Sodium 139 Potassium 3.7 Chloride 107 Carbon Dioxide 25 BUN 8 L Creatinine 0.77 Assessment and Plan Assessment Anesthesia Assessment: Chart Reviewed
[2023-12-14 07:53] VITALS: BP 113/71; PULSE 102; RESP 18; TEMP 36.8; O2SAT 97; BMI 31.9
--- NOTE | 2023-12-14 08:17 | MHC.SHP ---
Pre-Procedural Eval Section A - 24 Hr Update-Section A only Date of Service: 12/14/23 The patient has been examined within 24 hours of the surgical procedure. The History & Physical has been completed within 30 days and I have reviewed it.: Yes Section B - Complete if H&P > 30 days Chief Complaint: Other specified diseases of anus and rectum Allergies: Allergies Allergy/AdvReac Type Severity Reaction Status Date / Time codeine [Codeine] Allergy Intermediate AGITATION Verified 12/10/23 09:51 amoxicillin [Augmentin] AdvReac Intermediate rash Verified 12/10/23 09:51 clavulanic acid [Augmentin] AdvReac Intermediate rash Verified 12/10/23 09:51 Plan Diagnosis/Plan: Unchanged I have reviewed the history and physical and performed a pertinent physical examination on my patient. No changes have occurred unless specified. Time Spent With Patient Time: Total time managing care of this patient today ____ minutes.
[2023-12-14] MEDS: Lactated Ringers 1,000 ML 100 ML IVCONT (08:25)
--- NOTE | 2023-12-14 08:49 | P.OP_ITS ---
Operative Note Operative Note Date of Service: 12/14/23 Narrative: Procedure: Colonoscopy Indication: Lower GI bleeding Endoscopist: Sheila Mae MD Anesthesia Provider: Dr Zakia Silva Anesthesia type: MAC Instrument: Olympus [id number]-[id number] and [id number] Consent: Indication, risks vs benefits, and alternatives were discussed with the patient who gave written informed consent to proceed. EKG, pulse, pulse oximetry and blood pressure were monitored throughout the procedure. Please see anesthesia flowsheet. Procedure: The patient was brought to the procedure room and placed in the left lateral decubitus position. IV medications were administered by the anesthesia provider in attendance. A digital rectal exam was performed which was abnormal due to finding of hemorrhoids. The colonoscope was then inserted through the anus and advanced through the colon to the cecum at 90 cm. While trying to intubate the terminal ileum, colonoscope fell back and then could not reach cecum despite pressure application and position changes. Ultimately, adult scope was utilized to get to cecum. Ileocecal valve and appendiceal orifice were visualised. Mucosa was carefully examined under high definition white light as the instrument was slowly withdrawn in a retrograde panoramic fashion. Retroflexion was performed in rectum. The procedure was difficult due to a fixed and tortuous sigmoid causing significant looping of the scope (almost 40 cm of looped scope). There were no immediate obvious complications. The quality of the prep was BBPS: 2+3+2 = adequate Withdrawal time 8 minutes. Limitations: No limitations. Findings: Mucosa: Edema and erythema with pustular exudates noted in rectum with sharp cut off at 20 cm with remaining mucosa normal up to cecum. Cold forceps biopsies were taken for histology. Protruding lesions: * Medium internal hemorrhoids [without] stigmata of recent bleeding. Impression: 1. Proctitis (biopsy) 2. External and internal hemorrhoids Recommendations: - Follow path results. - Appearance suspicious for ulcerative proctitis. - Start mesalamine suppository at night. *Difficult colo - consider starting with adult scope for future colonoscopies*
[2023-12-14 10:15] VITALS: BP 105/62; PULSE 71; RESP 16; TEMP 36.4; O2SAT 97
--- NOTE | 2023-12-14 10:28 | HO.POSTANES ---
Post Anesthesia Evaluation Post Anesthesia Evaluation Date of Service: 12/14/23 Vital Signs: Vital Signs Temp Pulse Resp BP Pulse Ox O2 Del Method 12/14/23 10:15 97.6 F 71 16 105/62 97 Room Air 12/14/23 07:53 98.2 F 102 H 18 113/71 97 Room Air Anesthesia: Monitored Mental Status: Awake Pain Control: Satisfactory Nausea/Vomiting: None Hydration: Adequate Anesthesia-Related Issues: No Anes. Related Issues
[2023-12-14 10:32] VITALS: BP 114/60; PULSE 78; RESP 18; TEMP 36.1; O2SAT 99
== END 2023-12-14 11:19 | disposition home or self-care (01) ==
PROVIDERS: PCP Internal Medicine; Visit Provider Internal Medicine
PROC: 0DJD8ZZ Inspection of Lower Intestinal Tract, Via Natural or Artificial Opening Endoscopic (ICD-10-PCS; CPT 45378; principal; 2023-12-14 09:10)
DX: K62.89 Other specified diseases of anus and rectum (principal); K56.2 Volvulus; K64.8 Other hemorrhoids; K64.4 Residual hemorrhoidal skin tags; Z80.0 Family history of malignant neoplasm of digestive organs
CPT/HCPCS: 45380; 88305; J2704

== ENCOUNTER → 2023-12-14 07:39 | Outpatient (BNV) | payer OTHER, SELFPAY | PROVIDERS: PCP Internal Medicine; Visit Provider Internal Medicine | DX: K92.2 Gastrointestinal hemorrhage, unspecified (principal); K64.8 Other hemorrhoids; K62.89 Other specified diseases of anus and rectum | CPT/HCPCS: 45380 ==

== ENCOUNTER 2023-12-27 09:17 | Outpatient (AMB) | payer OTHER, SELFPAY ==
--- NOTE | 2023-12-27 09:21 | A.OFFVIS_ITS ---
Intake Vital Signs 12/27/23 09:22 Height 5 ft 3 in Weight 176 lb 12.972 oz BMI 31.3 BP 125/70 Blood Pressure Location Rt brachial Position Sitting Pulse 89 Pulse Source Pulse Oximeter Intake Visit Reasons: s/p colon Intake Note: Pt presents to the office today for a s/p colo. Pt states she is feeling well and denies any concerns at this time. Allergies codeine [Codeine] Allergy (Intermediate, Verified 12/27/23 09:27) AGITATION amoxicillin [Augmentin] Adverse Reaction (Intermediate, Verified 12/27/23 09:27) rash clavulanic acid [Augmentin] Adverse Reaction (Intermediate, Verified 12/27/23 09:27) rash HPI HPI Comments History of Present Illness Details 43y.o F with no significant PMH who is h ere for rectal bleeding and abnormal imaging. 11/15/23: Pt was seen in ER in Sep for LLQ pain and was found to have rectal wall thickening and ovarian cysts. The ovarian cysts have been deemed benign after MRI pelvis was reviewed by [facility] sho[facility]-onc. In terms of her rectal bleeding, first started in Aug 2023, initially only occasionally but since september has been noticing it daily with BMs. The stool itself is normal colored but has blood smeared on top. Has occ seen clots as well. No changes in stool itself. No fevers, chills, unintentional weight loss. When she had MRI in Oct ([facility] [place]) it demonstrated mild rectal wall thickening. Paternal aunt: colorectal ca at 42y.o - within weeks of diagnosis. 12/14/23: [place]: Impression: 1. Proctitis (biopsy) 2. External and internal hemorrhoids Recommendations: - Follow path results. - Appearance suspicious for ulcerative p roctitis. - Start mesalamine suppository at night. Path: Rectum, biopsies: Active proctitis with mild to moderate activity and features suggestive of early evolving chronicity (see comment). COMMENT: No granulomas are seen. The differential diagnosis includes infection, drug/medication effect, diverticular-associated colitis or idiopathic inflammatory bowel disease (favored). Clinical correlation is advised 12/27/23: Here for follow up. Has not seen any further bleeding since starting mesalamine supp - start date 12/14. Also notices improvement in tenesmus. Otherwise no other sx. PFSH Medical History Asthma Family history of colon cancer Left lower quadrant abdominal tenderness with rebound tenderness Complex cyst of right ovary Hemorrhagic cyst of left ovary Surgical History History of wisdom tooth extraction, class II edentulism History of partial hysterectomy Hx of section Family History Father Parkinson disease TIA (transient ischemic attack) High blood pressure Mother Diabetes High blood pressure Paternal Aunt Colon cancer Social History Housing: House Alcohol intake: current Alcohol intake frequency: holidays/special occasions only Alcohol type: hard liquor Patient Tobacco Use Status: Never used Tobacco e-Cigarette/Vaping Use: Never Used service: No Current occupational status: employed 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[employer],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 Current occupational exposures/hazards: No Cognitive needs: No Hearing needs: No Vision needs: No Review of Systems Const All systems reviewed & are unremarkable except as noted in HPI and below Physical Exam Vital Signs: Last Vital Signs Pulse 89 12/27/23 09:22 BP 125/70 12/27/23 09:22 BMI result Body Mass Index 31.3 NAD Abd soft, nondistended No overt resp distress A/Ox3 normal gait Assessment & Plan Assessment & Plan (1) Ulcerative proctitis: Code(s): K51.20 - Ulcerative (chronic) proctitis without complications Plan Reviewed with the pt that clinical assessment consistent with ulcerative proctitis.Good response to topical therapy. Will also get remaining baseline IBD labs as below. Plan: - Cont mesalamine 1g supp at night - Given low risk and mild disease, reviewed the option of using mesalamine as needed for flares (if only has 1-2 flares per year) but pt prefers to cont as maintenance therapy for now. Refills sent to pharmacy - CMP, CRP, fecal calpro ordered - Nutrition labs ordered - Hep serologies ordered Follow up in 6 months Orders: Orders Calprotectin, Fecal Today K51.20 - Ulcerative (chronic) proctitis without complications Ferritin Today K51.20 - Ulcerative (chronic) proctitis without complications Comprehensive Met. Panel Today K51.20 - Ulcerative (chronic) proctitis without complications C Reactive Protein Today K51.20 - Ulcerative (chronic) proctitis without complications Vitamin D 25-OH Total Today K51.20 - Ulcerative (chronic) proctitis without complications Hepatitis B Surface Antibody Today K51.20 - Ulcerative (chronic) proctitis without complications Hepatitis B Core Antibody Today K51.20 - Ulcerative (chronic) proctitis without complications Vitamin B12 and Folate Today K51.20 - Ulcerative (chronic) proctitis without complications IRON PROFILE Today K51.20 - Ulcerative (chronic) proctitis without complications Hepatitis A IgG Today K51.20 - Ulcerative (chronic) proctitis without complications Hepatitis C Antibody Today K51.20 - Ulcerative (chronic) proctitis without complications Hepatitis B Surface Antigen Today K51.20 - Ulcerative (chronic) proctitis without complications Medications: Refilled mesalamine 1 g MD BEDTIME 30 days 30 ea 5RF K62.89 - Other specified diseases of anus and rectum Coding Level of Care Code Est Pt Level 4 (61343) Diagnoses Ulcerative proctitis K51.
[2023-12-27 09:22] VITALS: BP 125/70; PULSE 89; BMI 31.3
== END 2023-12-27 09:56 | disposition home or self-care (01) ==
PROVIDERS: PCP Internal Medicine; Visit Provider Internal Medicine
DX: K51.20 Ulcerative (chronic) proctitis without complications (principal)
CPT/HCPCS: 99214

== ENCOUNTER → 2023-12-27 09:17 | Outpatient (BNVA) | payer OTHER, SELFPAY | PROVIDERS: PCP Internal Medicine; Visit Provider Internal Medicine | DX: K51.20 Ulcerative (chronic) proctitis without complications (principal) | CPT/HCPCS: 99212 ==

== ENCOUNTER 2024-01-05 12:22 | Outpatient (REF) | payer OTHER, SELFPAY ==
[2024-01-05 14:45] LABS: Alanine Aminotransferase 15 U/L (0-31); Albumin Level 4.1 g/dL (3.5-5.0); Alkaline Phosphatase 78 U/L (39-117); Anion Gap 11 (12-20); Aspartate Amino Transferase 15 U/L (5-31); Bilirubin Total 0.3 mg/dL (0.0-1.0); Blood Urea Nitrogen 13 mg/dL (9-16); Calcium 8.9 mg/dL (8.4-10.2); Carbon Dioxide 28 mmol/L (22-29); Chloride 105 mmol/L (96-108); Estimated Glomerular Filt Rate > 60; Glucose Random 83 mg/dL (60-115); Iron 67 mcg/dL (30-160); Percent Iron Saturation 26 % (15-50); Potassium 3.5 mmol/L (3.3-5.1); Sodium 140 mmol/L (135-145); Total Iron Binding Capacity 258 mcg/dL (228-428); Total Protein 6.8 g/dL (6.5-8.0); Unsaturated Iron Binding 191 ug/dL
[2024-01-05 15:02] LABS: Ferritin 147 ng/mL (10-250); Vitamin D 25-OH Total 29.8 ng/mL (>30)
[2024-01-05 15:14] LABS: Folate 7.4 ng/mL (> or = 4.0); Vitamin B12 663 pg/mL (200-900)
[2024-01-06 07:07] LABS: HBS Num1 0.16 mIU/mL (0-7.99); HBc Num1 0.13 S/CO (0.00-0.79); HBsAGNum1 0.34 S/CO (0.00-0.99); Hepatitis B Core Antibody Nonreactive (Nonreactive); Hepatitis B Surface Antigen Negative (Negative); ~Hepatitis B Surface Antibody NONREACTIVE (Nonreactive); ~Hepatitis C Antibody Nonreactive (Nonreactive)
[2024-01-06 07:13] LABS: Hepatitis A Antibody IgG Nonreactive (Nonreactive)
[2024-01-11 17:24] LABS: Calprotectin, Fecal 32 mcg/g
== END 2024-01-05 12:23 | disposition home or self-care (01) ==
LOC: HO.LAB 12:22
PROVIDERS: PCP Internal Medicine; Visit Provider Internal Medicine
DX: K51.20 Ulcerative (chronic) proctitis without complications (principal)
CPT/HCPCS: 36415; 80053; 82306; 82607; 82728; 82746; 83540; 83993; 86140; 86704; 86706; 86708; 86803; 87340

== ENCOUNTER → 2024-03-01 08:33 | Outpatient (AMB) | payer OTHER, SELFPAY ==
[2024-03-01 08:40] VITALS: BP 102/70; PULSE 90; O2SAT 97; BMI 30.8
--- NOTE | 2024-03-01 08:40 | A.OFFPC_ITS ---
Vital Signs 03/01/24 08:40 Height 5 ft 3 in Weight 174 lb BMI 30.8 BP 102/70 Blood Pressure Location Rt brachial Position Sitting Pulse 90 Pulse Source Pulse Oximeter Pulse Oximetry (%) 97 Oxygen Delivery Method Room Air Intake Visit Reasons: PE Intake Note: Pt is here today for her PE: Last mammogram 11/25/23: Partial hysterectomy 2016 Allergies codeine [Codeine] Allergy (Intermediate, Verified 03/01/24 09:05) AGITATION amoxicillin [Augmentin] Adverse Reaction (Intermediate, Verified 03/01/24 09:05) rash clavulanic acid [Augmentin] Adverse Reaction (Intermediate, Verified 03/01/24 09:05) rash Medication List - Last Reconciled 03/01/24 by MARCELLA Fernández albuterol sulfate 90 mcg/actuation (Ventolin HFA) 2 puffs inhalation Q6H PRN mesalamine 1 g KS BEDTIME 30 days multivitamin 1 tab PO DAILY Tobacco use date assessed: 03/01/24 Dental Screening Dental Screen Date: 03/01/24 Did you have a dental visit in the last 12 months?: No Was dental information given to patient?: Patient has dentist HPI HPI Comments History of Present Illness Details Patient is a 43-year-old female in today for physical exam. Patient is up-to-date with mammogram last completed in November 2023. Results were negative Patient currently seeing GI for ulcerative proctitis, patient had colonoscopy and December of 2023. Patient is due Tdap. Patient can get at pharmacy. 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 Hx of hysterectomy. Last pap smear done in 2016. PFS Medical History Asthma Family history of colon cancer Left lower quadrant abdominal tenderness with rebound tenderness Complex cyst of right ovary Hemorrhagic cyst of left ovary Surgical History History of wisdom tooth extraction, class II edentulism History of partial hysterectomy Hx of section Family History Father Parkinson disease TIA (transient ischemic attack) High blood pressure Mother Diabetes High blood pressure Paternal Aunt Colon cancer Social History Housing: House Alcohol intake: current Alcohol intake frequency: holidays/special occasions only Alcohol type: hard liquor Patient Tobacco Use Status: Never used Tobacco e-Cigarette/Vaping Use: Never Used service: No Current occupational status: employed 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 1. Little interest or pleasure in doing things: not at all 2. Feeling down, depressed, or hopeless: not at all 3. Trouble falling or staying asleep, or sleeping too much: not at all 4. Feeling tired or having little energy: not at all 5. Poor appetite or overeating: not at all 6. Feeling bad about yourself - or that you are a failure or have let yourself or your family down: not at all 7. Trouble concentrating on things, such as reading the newspaper or watching television: not at all 8. Moving or speaking so slowly that other people could have noticed. Or the opposite - being so fidgety or restless that you have been moving around a lot more than usual: not at all 9. Thoughts that you would be better off or of hurting yourself in some way: not at all Total score: 0 Depression Screening Interpretation: Negative Depression Screening Done: Yes 53781 - PHQ-9 Billing: Yes Source: Developed by Drs. Terry Woods, Luiza Gale, Silvano Espinoza and colleagues, with an educational sarah from [employer] software. Thrive Questionnaire Date Thrive assessed: 03/01/24 I am a: Patient What is your living situation today?: I have a steady place to live Within the past 12 months, did the food you bought not last and you didn't have the money to get more?: Never true Within the past 12 months, did you worry whether your food would run out before you got money to buy more?: Never true Do you have trouble paying for medicines?: No Do you have trouble getting transportation to medical appointments?: No Do you have trouble paying your heating and electricity bill?: No Do you have trouble taking care of your child, family member or friend?: No Do you have trouble with day-to-day activities such as bathing, preparing meals, shopping, managing finances, etc.?: No Are you currently unemployed and looking for a job?: No Are you interested in more education?: No THRIVE Score: 0 AUDIT C Alcohol Use Questionnaire (AUDIT-C) 1. How often do you have a drink containing alcohol?: Never Total Score: 0 KJ-7 AMB Questionnaire KJ-7 Date KJ - 7 assessed: 03/01/24 Feeling nervous, anxious, or on edge: 0 = Not at all Not being able to stop or control worryin = Not at all Worrying too much about different things: 0 = Not at all Trouble relaxin = Not at all Being so restless that it is hard to sit still: 0 = Not at all Becoming easily annoyed or irritable: 0 = Not at all Feeling afraid as if something awful might happen: 0 = Not at all Total KJ-7 score (0-4 normal; 5-9 mild; 10-14 moderate; 15-21 severe): 0 Source: Developed by Drs. Terry Woods, Luiza Gale, Silvano Espinoza and colleagues, with an educational sarah from [employer] software. KJ-7 Assessment Billing KJ-7 Assessment Tool: KJ-7 Assessment 79645 Review of Systems Const All systems reviewed & are unremarkable except as noted in HPI and below Denies headache(s) Eyes Denies blurry vision and Denies loss of vision ENT Denies vertigo, Denies dizziness and Denies headache(s) Card Denies chest pain and Denies dyspnea Resp Denies dyspnea GI Denies diarrhea, Denies nausea and Denies vomiting Musc Reports arthralgias (pubic symphysis. ) and Reports stiffness (PIP joints of bilateral hands. ) Skin/Breast Reports other ([place].) Neuro Denies vertigo, Denies dizziness, Denies headache(s) and Denies loss of vision Physical exam (Primary Care) Vital Signs: Last Vital Signs Pulse 90 03/01/24 08:40 BP 102/70 03/01/24 08:40 Pulse Ox 97 03/01/24 08:40 Oxygen Delivery Method Room Air 03/01/24 08:40 BMI result Body Mass Index 30.8 Tobacco/Smoking Status: Tobacco use Status Tobacco use date assessed 03/01/24 03/01/24 08:44 Patient Tobacco Use Status Never used Tobacco 03/01/24 08:43 e-Cigarette/Vaping Use Never Used 03/01/24 08:43 PHQ-9: PHQ-9 Score PHQ-9: Total score 0 03/01/24 08:47 Depression Screening Interpretation: Negative Thrive Assessment: Date of Thrive Assessment Date Thrive assessed 03/01/24 03/01/24 08:47 Forms completed: Health Care Proxy Time spent: 1-15 minutes, not on file Const Other: Appearance: Alert.? Oriented X3.? No acute distress.? Head: Normocephalic, Eyes: Pupils equal, round and reactive to light. Sclera white. ? ENT: Pharynx normal.?TM intact and pearly abebe. Neck: Normal inspection.? Neck supple.?Full ROM. CVS: Normal heart rate and rhythm.? Pulses normal.? Respiratory: No respiratory distress.? Breath sounds normal.? Abdomen: Soft and nontender.? Skin: Skin warm and dry.? Normal skin color.? Normal skin turgor.? Extremities: No lower extremity edema. 5/5 strength to bilateral upper and lower extremities Back: No midline tenderness, no C-spine tenderness, full range of motion, no CVA tenderness bilaterally Neuro: Oriented X 3.? No motor deficit.? No sensory deficit. Results Reviewed Results Reviewed: Sodium 140 135-145 mmol/L Potassium 3.5 3.3-5.1 mmol/L CL 105 96-108 mmol/L CO2 28 22-29 mmol/L Gap 11 L 12-20 BUN 13 9-16 mg/dL Creat 0.80 0.5-1.4 mg/dL EGFR > 60 NOTE: For -[place] individuals, multiply the result by 1.210. Chronic Kidney Disease: Estimated GFR < 60 mL/min/1.73m2 Severe Kidney Disease: Estimated GFR < 15 mL/min/1.73m2 Glucose, Random 83 60-115 mg/dL CA 8.9 8.4-10.2 mg/dL Iron 67 30-160 mcg/dL TIBC 258 228-428 mcg/dL Saturation 26 15-50 % UIBC 191 ug/dL Ferritin 147 10-250 ng/mL Total Bili 0.3 0.0-1.0 mg/dL AST (GOT) 15 5-31 U/L ALT (GPT) 15 0-31 U/L CRP 0.30 < or = 0.50 mg/dL Protein, Total 6.8 6.5-8.0 g/dL Alb 4.1 3.5-5.0 g/dL Alk Phos 78 39-117 U/L Vit D 25-OH Tot 29.8 L >30 ng/mL Health Based Reference Values* < 20 ng/mL Deficient 20-30 ng/mL Insufficient > 30 ng/mL Sufficient *Massiel PADILLA. N Engl J Med. 2007;357:266-280 Care must be taken in interpreting Vitamin D results from different laboratories and methodologies. Published data demonstrated that results from patients undergoing hemodialysis may show a negative bias when tested with various automated 25-OH vitamin D assays when compared to LC-MS/MS. When testing samples from patients whose predominant form of Vitamin D is Vitamin D2, such as patients receiving Vitamin D2 supplementation, results that are subtherapeutic should be confirmed with another method such as LC-MS/MS. Assessment and Plan Assessment & Plan (1) Encounter for physical examination: Comment: Will redraw labs including CBC, lipid profile, CBC, vitamin-D Code(s): Z00.00 - Encounter for general adult medical examination without abnormal findings (2) Trigger finger: Comment: Patient has trigger finger of PIP joints of the 1st and 2nd finger in bilateral hands. Will refer to hand specialist Code(s): M65.30 - Trigger finger, unspecified finger Qualifiers: Trigger finger location: unspecified finger Laterality: unspecified laterality Qualified Code(s): M65.30 - Trigger finger, unspecified finger (3) Sprain of symphysis pubis: Comment: This was found on MRI scan. Patient having discomfort. Has right hip discomfort. Will refer to pelvic floorworker distributor. Code(s): S33.8XXA - Sprain of other parts of lumbar spine and pelvis, initial encounter Qualifiers: Encounter type: initial encounter Qualified Code(s): S33.8XXA - Sprain of other parts of lumbar spine and pelvis, initial encounter (4) Ulcerative proctitis: Comment: Has establish care with GI-currently controlled with mesalamine. Code(s): K51.20 - Ulcerative (chronic) proctitis without complications Qualifiers: Digestive disease complication type: unspecified complication Qualified Code(s): K51.219 - Ulcerative (chronic) proctitis with unspecified complications Plan Follow up in 6 months. Orders: Orders Vitamin D 25-OH (D2 and D3) Today Z13.21 - Encounter for screening for nutritional disorder Complete Blood Count Auto Diff Today Z91.89 - Other specified personal risk factors, not elsewhere classified Comprehensive Met. Panel Today Z13.0 - Encounter for screening for diseases of the blood and blood-forming organs and certain disorders involving the immune mechanism Lipid Panel Today Z13.220 - Encounter for screening for lipoid disorders TSH reflex Free T4 Today Z13.29 - Encounter for screening for other suspected endocrine disorder Referrals Pelvic Ios Developer Referral S33.4XXA - Traumatic rupture of symphysis pubis, initial encounter Orthopedics Referral M65.30 - Trigger finger, unspecified finger Coding Level of Care Code Est Pt Prev Care 40-64y(26936) Diagnoses Encounter for physical examination Z00.00 Trigger finger, unspecified finger, unspecified laterality M65.30 Trigger finger location: unspecified finger Laterality: unspecified laterality Sprain, symphysis pubis, initial encounter S33.8XXA Encounter type: initial encounter Ulcerative proctitis with complication K51.219 Digestive disease complication type: unspecified complication Additional Codes KJ-7 Assessment Billing - KJ-7 Assessment Tool: KJ-7 Assessment 28051 ([id number]) Vital Signs *Quality* - Time spent: 1-15 minutes, not on file ([id number]) Time Spent (min) 35
== END ==
PROVIDERS: PCP Internal Medicine; Visit Provider Nurse Practitioner Primary Care
DX: Z00.00 Encounter for general adult medical examination without abnormal findings (principal); M65.30 Trigger finger, unspecified finger; S33.8XXA Sprain of other parts of lumbar spine and pelvis, initial encounter; K51.219 Ulcerative (chronic) proctitis with unspecified complications
CPT/HCPCS: 1124F; 99396

== ENCOUNTER 2024-03-29 09:58 | Outpatient (AMB) | payer OTHER, SELFPAY ==
--- NOTE | 2024-03-29 10:02 | A.OFFVIS_ITS ---
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 Patient reports locking and catching at the PIP joints of the 2nd and 3rd finger that started around 2019. States swelling increases with repetitive use of hand. No strength with opening jars. No previous tx. She uses finger splints and wrist braces at night. Hx of bilateral carpal tunnel with right hand being the worse. Hx of arthritis located on right hand at her [facility]. 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 She reports she has locking and catching at the PIP joints of 2nd and 3rd metacarpal since 2019. Her pain is aggravated with the use of her hand and she has no strength with opening jars. She has not had any treatment in the past. She uses finger and wrist splints at night with mild relief and she experiences swelling without using the splints. She has a history of bilateral CTS with the right hand being the worse. [facility] Medical History Asthma Family history of colon cancer Left lower quadrant abdominal tenderness with rebound tenderness Complex cyst of right ovary Hemorrhagic cyst of left ovary Surgical History History of wisdom tooth extraction, class II edentulism History of partial hysterectomy Hx of section Family History Father Parkinson disease TIA (transient ischemic attack) High blood pressure Mother Diabetes High blood pressure Paternal Aunt Colon cancer Social History Housing: House Alcohol intake: current Alcohol intake frequency: holidays/special occasions only Alcohol type: hard liquor Patient Tobacco Use Status: Never used Tobacco e-Cigarette/Vaping Use: Never Used service: No Current occupational status: employed 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[employer],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 Current occupational exposures/hazards: No Cognitive needs: No Hearing needs: No Vision needs: No Review of Systems Const All systems reviewed & are unremarkable except as noted in HPI and below Physical Exam Vital Signs: BMI result Body Mass Index 30.8 Const General: cooperative, healthy appearing, comfortable, no acute distress, well developed and alert Orientation/consciousness: patient oriented x3 HEENT Head: Yes normal to inspection, Yes normocephalic and Yes atraumatic Eyes General: appearance normal, both eyes and all related structures Resp Effort & Inspection: normal respiratory effort and able to speak in complete sentences Cardio Rate: regular rate Peripheral pulses: Peripheral pulses 2+ throughout GI Palpation (GI): Soft to palpation Skin Lesions: no lesions Rashes: no rashes Neuro General: patient oriented x3 Extrem Other: Bilateral wrist: Normal to inspection.? Tenderness over the carpal canal.? Numbness and tingling over the median nerve distribution of the right hand.? Able to make a full fist and fully extend all fingers.? Positive Tinel's. Right index and middle finger: Tender nodule along the A1 abel with active catching and locking. NVI. Assessment & Plan Assessment & Plan (1) Trigger finger: Comment: Patient has trigger finger of PIP joints of the 1st and 2nd finger in bilateral hands. Will refer to hand specialist Code(s): M65.30 - Trigger finger, unspecified finger Category: Medical Qualifiers: Trigger finger location: unspecified finger Laterality: unspecified laterality Qualified Code(s): M65.30 - Trigger finger, unspecified finger (2) Carpal tunnel syndrome on both sides: Code(s): G56.03 - Carpal tunnel syndrome, bilateral upper limbs Category: Medical Plan An order for EMG/nerve conduction study of the BUE was placed to further evaluate the extent of his CTS. She was also given bilateral Velcro wrist splints in the office today which she will wear at night. She will see me back once the study is complete. Orders: Orders NE electromyogram (EMG) Today R20.0 - Anesthesia of skin, R20.2 - Paresthesia of skin NE nerve conduction velocity Today R20.0 - Anesthesia of skin, R20.2 - Paresthesia of skin Patient Instructions: Scribed for Carlos Hopkins PA-C, by John Wren director medical, on 03/29/2024 at 10:00 AM EST.? I, Carlos Hopkins PA-C, have personally reviewed and agree with the information entered by the scribe. Coding Level of Care Code New Pt Level 3 (09232) Diagnoses Trigger finger, unspecified finger, unspecified laterality M65.30 Trigger finger location: unspecified finger Laterality: unspecified laterality Carpal tunnel syndrome on both sides G56.03
[2024-03-29 10:11] VITALS: BMI 30.8
== END 2024-03-29 10:41 | disposition home or self-care (01) ==
PROVIDERS: PCP Internal Medicine; Visit Provider Physician Assistant
DX: M65.331 Trigger finger, right middle finger (principal); M65.321 Trigger finger, right index finger; G56.03 Carpal tunnel syndrome, bilateral upper limbs
CPT/HCPCS: 99203

== ENCOUNTER → 2024-03-29 09:58 | Outpatient (BNVA) | payer OTHER, SELFPAY | PROVIDERS: PCP Internal Medicine; Visit Provider Physician Assistant | DX: M65.321 Trigger finger, right index finger (principal); M65.331 Trigger finger, right middle finger; G56.03 Carpal tunnel syndrome, bilateral upper limbs | CPT/HCPCS: 99202 ==

== ENCOUNTER 2024-04-12 14:09 | Outpatient (REF) | payer OTHER, SELFPAY ==
--- NOTE | 2024-04-12 14:15 | EMG_ITS ---
Chief complaint: Bilateral chronic but mild numbness in hands, controlled by wearing wrist splints at night Reason for referral: Evaluate for Carpal Tunnel Syndrome Referred by: Carlos MEDINA Procedure done: Bilateral upper extremities NCS/EMG Precautions and/or limitations: None The limb temperature was monitored continuously and remained between 32-36 degrees C during the performance of the NCS. Nerve Conduction Studies Anti Sensory Summary Table ?Stim Site NR Onset (ms) Norm Onset (ms) Peak (ms) Norm Peak (ms) O-P Amp (?V) Norm O-P Amp Site1 Site2 Delta-0 (ms) Dist (cm) Iggy (m/s) Norm Iggy (m/s) Left Median Anti Sensory (2nd Digit) Wrist ? 2.6 3.2 <3.6 12.6 >10 Wrist 2nd Digit 2.6 14.0 54 Right Median Anti Sensory (2nd Digit) Wrist ? 2.7 3.3 <3.6 22.1 >10 Wrist 2nd Digit 2.7 14.0 52 Left Ulnar Anti Sensory (5th Digit) Wrist ? 1.8 2.6 <3.7 59.2 >15.0 Wrist 5th Digit 1.8 14.0 78 Right Ulnar Anti Sensory (5th Digit) Wrist ? 2.2 2.7 <3.7 15.9 >15.0 Wrist 5th Digit 2.2 14.0 64 Motor Summary Table ?Stim Site NR Onset (ms) Norm Onset (ms) O-P Amp (mV) Norm O-P Amp iAmp (mV) Amp (1st) (%) Site1 Site2 Delta-0 (ms) Dist (cm) Iggy (m/s) Norm Iggy (m/s) Left Median Motor (Abd Poll Brev) Wrist ? 3.3 <3.9 11.6 >4.5 14.5 100.0 Elbow Wrist 3.3 19.5 59 >45 Elbow ? 6.6 10.4 12.8 89.7 Right Median Motor (Abd Poll Brev) Wrist ? 3.8 <3.9 6.6 >4.5 7.8 100.0 Elbow Wrist 3.3 20.0 61 >45 Elbow ? 7.1 5.2 6.1 78.8 Left Ulnar Motor (Abd Dig Minimi) Wrist ? 2.7 <3.0 9.3 >5 11.3 100.0 B Elbow Wrist 2.5 16.5 66 >45 B Elbow ? 5.2 9.3 11.6 100.0 A Elbow B Elbow 1.2 10.0 83 >45 A Elbow ? 6.4 8.7 11.1 93.5 Right Ulnar Motor (Abd Dig Minimi) Wrist ? 2.3 <3.0 10.7 >5 13.0 100.0 B Elbow Wrist 2.8 18.0 64 >45 B Elbow ? 5.1 10.1 12.5 94.4 A Elbow B Elbow 1.1 10.0 91 >45 A Elbow ? 6.2 9.8 12.2 91.6 Comparison Summary Table ?Stim Site NR Peak (ms) Norm Peak (ms) P-T Amp (?V) Site1 Site2 Delta-P (ms) Norm Delta (ms) Left Median/Radial Dig I Comparison (Digit 1 - 10cm) Median ? 2.7 <2.9 71.9 Median Radial 0.6 Radial ? 2.1 <2.8 22.1 Right Median/Radial Dig I Comparison (Digit 1 - 10cm) Median ? 2.9 <2.9 53.5 Median Radial 0.6 Radial ? 2.3 <2.8 16.4 EMG ?Side Muscle Nerve Root Ins Act Fibs Psw Amp Dur Poly Recrt Int Pat Comment Right 1stDorInt Ulnar C8-T1 Nml Nml Nml Nml Nml 0 Nml Complete Right FlexCarRad Median C6-7 Nml Nml Nml Nml Nml 0 Nml Complete Right Biceps Musculocut C5-6 Nml Nml Nml Nml Nml 0 Nml Complete Right Triceps Radial C6-7-8 Nml Nml Nml Nml Nml 0 Nml Complete Right Deltoid Axillary C5-6 Nml Nml Nml Nml Nml 0 Nml Complete Left 1stDorInt Ulnar C8-T1 Nml Nml Nml Nml Nml 0 Nml Complete Left FlexCarRad Median C6-7 Nml Nml Nml Nml Nml 0 Nml Complete Left Biceps Musculocut C5-6 Nml Nml Nml Nml Nml 0 Nml Complete Left Triceps Radial C6-7-8 Nml Nml Nml Nml Nml 0 Nml Complete Left Deltoid Axillary C5-6 Nml Nml Nml Nml Nml 0 Nml Complete FINDINGS: Significant interlatency difference between median and radial sensory nerves, bilateral. Otherwise, all other motor and sensory nerves tested showed normal latencies, amplitudes and conduction velocities. Concentric needle EMG was performed in selected muscles of the bilateral upper extremities. Study did not reveal signs of electric abnormalities as shown in the table above. IMPRESSION: 1. This is an abnormal study. 2. 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 3. There is no electrodiagnostic evidence for ulnar neuropathy, brachial plexopathy, or cervical radiculopathy. Thank you for your kind referral. Germania Castellon MD, ASHLEE Board Certified, [place] [employer] and [employer] (ABPMR) Board Certified, [place] Board [employer] Electrodiagnostic [employer] (ABEM) CODIN [id number] x 2 MTDD
== END 2024-04-12 14:10 | disposition home or self-care (01) ==
LOC: HO.NEURO 14:09
PROVIDERS: PCP Internal Medicine; Visit Provider Physical Medicine & Rehabilitation
DX: R20.0 Anesthesia of skin (principal); R20.2 Paresthesia of skin
CPT/HCPCS: 95886; 95911

== ENCOUNTER → 2024-04-12 14:15 | Outpatient (BNV) | payer OTHER, SELFPAY | PROVIDERS: PCP Internal Medicine; Visit Provider Physical Medicine & Rehabilitation | DX: G56.13 Other lesions of median nerve, bilateral upper limbs (principal) | CPT/HCPCS: 95886; 95911 ==

== ENCOUNTER 2024-06-19 07:51 | Outpatient (REF) | payer OTHER, SELFPAY ==
[2024-06-19 10:11] LABS: MANUAL DIFF FLAG NO
[2024-06-19 10:18] LABS: Basophils Percent Auto 0.5 % (0-2); Eosinophils Absolute Auto 0.2 X10*3/uL (0.0-0.4); Eosinophils Percent Auto 2.4 % (0-4); Hematocrit 43.5 % (37.0-47.0); Hemoglobin 14.5 g/dl (12.0-16.0); Imm Gran Abs Auto 0.05 X10*3/uL (0.00-0.03); Imm Gran Pct Auto 0.6 % (0.0-0.4); Lymphocytes Absolute Auto 2.3 X10*3/uL (1.2-4.9); Lymphocytes Percent Auto 26.5 % (20-40); Mean Corpuscular HGB Conc 33.3 g/dl (31.0-35.0); Mean Corpuscular Hemoglobin 30.9 pg (27.0-33.0); Mean Corpuscular Volume 92.8 fL (80.0-98.0); Mean Platelet Volume 10.9 fL (9.4-12.3); Monocytes Absolute Auto 0.5 X10*3/uL (0.1-1.2); Monocytes Percent Auto 5.6 % (2-11); Neutrophils Absolute Auto 5.6 x10*3/uL (2.0-8.3); Neutrophils Percent Auto 64.4 % (45-73); Platelet Count 231 X10*3/uL (160-400); Red Blood Count 4.69 X10*6/uL (4.20-5.50); Red Cell Distribution Width 13.3 % (11.0-16.0); White Blood Count 8.6 X10*3/uL (4.8-10.8)
[2024-06-19 10:42] LABS: Alanine Aminotransferase 12 U/L (0-31); Alkaline Phosphatase 75 U/L (39-117); Anion Gap 12 (12-20); Aspartate Amino Transferase 13 U/L (5-31); Bilirubin Total 0.3 mg/dL (0.0-1.0); Blood Urea Nitrogen 7 mg/dL (9-16); Calcium 8.9 mg/dL (8.4-10.2); Carbon Dioxide 26 mmol/L (22-29); Chloride 109 mmol/L (96-108); Cholesterol 151 mg/dL (<200); Estimated Glomerular Filt Rate > 60; Glucose Random 105 mg/dL (60-115); HDL Cholesterol 52 mg/dL (>40); LDL Cholesterol Calculated 91 mg/dL (<100); Sodium 143 mmol/L (135-145); Total Protein 6.7 g/dL (6.5-8.0); Triglycerides 41 mg/dL (<150)
[2024-06-19 11:03] LABS: TSH reflex Free T4 1.65 uIU/mL (0.32-4.0)
[2024-06-23 14:43] LABS: Vitamin D 25-OH, D2 <4 ng/mL; Vitamin D 25-OH, D3 25 ng/mL; Vitamin D 25-OH, Total 25 ng/mL (30-100)
== END 2024-06-19 07:52 | disposition home or self-care (01) ==
LOC: HO.HMGCLDS 07:51
PROVIDERS: PCP Internal Medicine; Visit Provider Nurse Practitioner Primary Care
DX: Z13.220 Encounter for screening for lipoid disorders (principal); Z13.29 Encounter for screening for other suspected endocrine disorder; Z13.21 Encounter for screening for nutritional disorder; Z91.89 Other specified personal risk factors, not elsewhere classified; Z13.0 Encounter for screening for diseases of the blood and blood-forming organs and certain disorders involving the immune mechanism
CPT/HCPCS: 36415; 80053; 80061; 82306; 84443; 85025

== ENCOUNTER 2024-08-02 09:00 | Outpatient (AMB) | payer OTHER, SELFPAY ==
[2024-08-02 09:01] VITALS: BMI 31.2
--- NOTE | 2024-08-02 09:01 | MHC.OFFVIS ---
Vital Signs 08/02/24 09:01 Height 5 ft 3 in Weight 176 lb 5.917 oz BMI 31.2 Blood Pressure Location Lt brachial Position Sitting Intake Visit Reasons: 6 month follow up ulcerative colitis Intake Note: Henrietta presents in the office as a 6 month follow up for Ulcerative Colitis. CC: She states that she is not having any concerns just a follow up. Report Clerk Required: No Allergies codeine [Codeine] Allergy (Intermediate, Verified 08/02/24 09:04) AGITATION amoxicillin [Augmentin] Adverse Reaction (Intermediate, Verified 08/02/24 09:04) rash clavulanic acid [Augmentin] Adverse Reaction (Intermediate, Verified 08/02/24 09:04) rash HPI Comments Details: 43y.o F with no significant PMH who is here for rectal bleeding and abnormal imaging. 11/15/23: Pt was seen in ER in Sep for LLQ pain and was found to have rectal wall thickening and ovarian cysts. The ovarian cysts have been deemed benign after MRI pelvis was reviewed by [facility] [email or web address]-on[facility]. In terms of her rectal bleeding, first started in Aug 2023, initially only occasionally but since september has been noticing it daily with BMs. The stool itself is normal colored but has blood smeared on top. Has occ seen clots as well. No changes in stool itself. No fevers, chills, unintentional weight loss. When she had MRI in Oct ([facility] [place]) it demonstrated mild rectal wall thickening. Paternal aunt: colorectal ca at 42y.o - within weeks of diagnosis. 12/14/23: [place]: Impression: 1. Proctitis (biopsy) 2. External and internal hemorrhoids Recommendations: - Follow path results. - Appearance suspicious for ulcerative proctitis. - Start mesalamine suppository at night. Path: Rectum, biopsies: Active proctitis with mild to moderate activity and features suggestive of early evolving chronicity (see comment). COMMENT: No granulomas are seen. The differential diagnosis includes infection, drug/medication effect, diverticular-associated colitis or idiopathic inflammatory bowel disease (favored). Clinical correlation is advised 12/27/23: Here for follow up. Has not seen any further bleeding since starting mesalamine supp - start date 12/14. Also notices improvement in tenesmus. Otherwise no other sx. 08/02/24: Currently no acute sx. Taking mesalamine 1g NM however adherence is not ideal. Often skips 2-3 days in a row at least once or twice a month. With that starts noticing increased lower abd cramping, blood in stool, mucus, and tenesmus. Once she resumes, takes around a week to go back to baseline. [facility] Medical History Asthma Family history of colon cancer Left lower quadrant abdominal tenderness with rebound tenderness Complex cyst of right ovary Hemorrhagic cyst of left ovary Surgical History History of wisdom tooth extraction, class II edentulism History of partial hysterectomy Hx of section Family History Father Parkinson disease TIA (transient ischemic attack) High blood pressure Mother Diabetes High blood pressure Paternal Aunt Colon cancer Social History Housing: House Alcohol intake: current Alcohol intake frequency: holidays/special occasions only Alcohol type: hard liquor Patient Tobacco Use Status: Never used Tobacco e-Cigarette/Vaping Use: Never Used service: No Current occupational status: employed 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[employer],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 Current occupational exposures/hazards: No Cognitive needs: No Hearing needs: No Vision needs: No Review of Systems Const All systems reviewed & are unremarkable except as noted in HPI and below Physical Exam Vital Signs: BMI result Body Mass Index 31.2 No apparent distress Nonicteric Abdomen soft, nondistended Alert and oriented x3, normal gait Assessment & Plan Assessment & Plan (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 Discussed that could potentially add oral regimen as an additional safety net joel as adherence to rectal therapy is suboptimal. This is in ADDITION to rectal therapy as PO therapy alone as limited efficacy for ulcerative proctitis. Plan: - Cont mesalamine 1g supp at night - Add lialda 2.4g/day - Due for CBC, CMP, CRP and fecal calpro - [place]eds [place] vaccination [place] [facility] [place] 6 months Orders: Orders Complete Blood Count no Diff Today K51.219 - Ulcerative (chronic) proctitis with unspecified complications Comprehensive Met. Panel Today K51.219 - Ulcerative (chronic) proctitis with unspecified complications Calprotectin, Fecal Today K51.219 - Ulcerative (chronic) proctitis with unspecified complications C Reactive Protein Today K51.219 - Ulcerative (chronic) proctitis with unspecified complications Medications: New mesalamine (Lialda) 2.4 grams (2 x 1.2 gram) PO DAILY 180 tabs 1RF 90 days Refilled mesalamine 1 g NM BEDTIME 30 ea 5RF 30 days K62.89 - Other specified diseases of anus and rectum Coding Level of Care Code Est Pt Level 4 (79386) Complex EM visit Add On G2211 Diagnoses Ulcerative proctitis with complication K51.219 Digestive disease complication type: unspecified complication
== END 2024-08-02 10:51 | disposition home or self-care (01) ==
PROVIDERS: PCP Internal Medicine; Visit Provider Internal Medicine
DX: K51.219 Ulcerative (chronic) proctitis with unspecified complications (principal)
CPT/HCPCS: 99214

== ENCOUNTER → 2024-08-02 09:00 | Outpatient (BNVA) | payer OTHER, SELFPAY | PROVIDERS: PCP Internal Medicine; Visit Provider Internal Medicine | DX: K51.219 Ulcerative (chronic) proctitis with unspecified complications (principal) | CPT/HCPCS: 99212 ==

== ENCOUNTER 2025-01-19 08:07 | Outpatient (REF) | payer SELFPAY ==
--- OUTSIDE RECORDS SUMMARY | 2025-01-19 08:14 | XMS_ITS | Data Portability ---
Author Organization [place] - [facility], , [facility] Address [address] [place] [address] Assessment No assessment recorded. Plan of Treatment Reminders Order Date Submit Date Provider Last Modified By Organization Details Last Modified Time Details Appointments None record ed. Lab None record ed. Referral None record ed. Procedures None record ed. Surgeries None record ed. Imaging None record ed. Medication Orders None record ed. Patient TargetsNo targets recorded. Patient InstructionsNo instructions recorded. Reason for Referral None Reported. Results Created Date Observation Date Name Description Value Unit Range Abnormal Flag Note LastModifiedBy Organization Detail LastModifiedTime 09/08/20 07 09/08/2007 CBC WBC 10.5 K/?L 4.6-10 .2 high Not Available [address], [address], 12/06/2008 04:58:38 09/08/20 07 09/08/2007 CBC lymph # 2.9 K/?L 0.6-3. 4 Not Available [address], [address], 12/06/2008 04:58:38 09/08/20 07 09/08/2007 CBC mid # 0.3 K/?L 0.0-1. 8 Not Available [address], [address], 12/06/2008 04:58:38 09/08/20 07 09/08/2007 CBC gran # 7.3 K/?L 2.0-6. 9 high Not Available [address], [address], 12/06/2008 04:58:38 09/08/20 07 09/08/2007 CBC lymph % 27.5 % 10.0-5 0.0 Not Available [address], [address], 12/06/2008 04:58:38 09/08/20 07 09/08/2007 CBC mid % 3.2 % 0.1-24 .0 Not Available [address], [address], 12/06/2008 04:58:38 09/08/20 07 09/08/2007 CBC gran % 69.3 % 37.0-8 0.0 Not Available [address], [address], 12/06/2008 04:58:38 09/08/20 07 09/08/2007 CBC RBC 4.88 M/?L 4.04-5 .48 Not Available [address], [address], 12/06/2008 04:58:38 09/08/20 07 09/08/2007 CBC HGB 14.7 g/dL 12.2-1 6.2 Not Available [address], [address], 12/06/2008 04:58:38 09/08/20 07 09/08/2007 CBC HCT 42.7 % 37.7-4 7.9 Not Available [address], [address], 12/06/2008 04:58:38 09/08/20 07 09/08/2007 CBC MCV 87.6 ?L 80.0-9 7.0 Not Available [address], [address], 12/06/2008 04:58:38 09/08/20 07 09/08/2007 CBC MCH 30.1 pg 27.0-3 1.2 Not Available [address], [address], 12/06/2008 04:58:38 09/08/20 07 09/08/2007 CBC MCHC 34.4 g/dL 31.8-3 5.4 Not Available [address], [address], 12/06/2008 04:58:38 09/08/20 07 09/08/2007 CBC plt 317.0 K/?L 142.0- 424.0 Not Available [address], [address], 12/06/2008 04:58:38 09/08/20 07 09/08/2007 CBC RDW 13.7 % 11.6-1 4.8 Not Available [address], [address], 12/06/2008 04:58:38 09/08/20 07 09/08/2007 CBC _MPV 0.0 Not Available [address], [address], 12/06/2008 04:58:38 09/08/20 07 09/08/2007 CBC segs 69 % Not Available [address], [address], 12/06/2008 04:58:38 09/08/20 07 09/08/2007 CBC lymph 28 % Not Available [address], [address], 12/06/2008 04:58:38 09/08/20 07 09/08/2007 CBC mono 1 % Not Available [address], [address], 12/06/2008 04:58:38 09/08/20 07 09/08/2007 CBC eosin 1 % Not Available [address], [address], 12/06/2008 04:58:38 09/08/20 07 09/08/2007 CBC christiano. lymph 1 % Not Avail able [address], [address], 12/06/2008 04:58:38 09/08/20 07 09/09/2007 monon ucleo sis test, qual mono NEGATI VE negati ve Not Available [address], [address], 12/06/2008 04:58:38 09/08/20 07 09/08/2007 thyro id stimu latin g hormo ne (TSH) TSH 0.63 uIU/m L 0.50-6 .00 the ameri can colle ge of endoc rinol ogy and ameri can thyro id assoc iatio n recom mend goal TSH value s betwe en 1.0-2 .5 mIU/m L. Not Available [address], [address], 12/06/2008 04:58:38 09/08/20 07 09/08/2007 basic metab olic panel glucose 75 mg/dL 70-100 clini alfonzo refer ence range s fasti ng gluco se <100 mg/dL = loreto l fasti ng gluco se; 100-1 25 mg/dL = ifg (impa ired fasti ng gluco se); >126 mg/dL = provi siona l diagn osis of diabe odessa (conf irm by repea t testi ng on A day.) Not Available [address], [address], 12/06/2008 04:58:38 09/08/20 07 09/08/2007 basic metab olic panel BUN 9 mg/dL 7-18 Not Available [address], [address], 12/06/2008 04:58:38 09/08/20 07 09/08/2007 basic metab olic panel creatinine 0.8 mg/dL 0.8-1. 3 Not Available [address], [address], 12/06/2008 04:58:38 09/08/20 07 09/08/2007 basic metab olic panel B/C 11.3 ratio Not Available [address], [address], 12/06/2008 04:58:38 09/08/20 07 09/08/2007 basic metab olic panel GFR 95.0 mL/mi n recom mekhi d GFR by the natio nal kidne y found ation >60 mL/mi n/1.7 3M2 - loreto l <60 mL/mi n/1.7 3M2 - chron ic kidne y disea se <15 mL/mi n/1.7 3M2 - kidne y failu re Not Available [address], [address], 12/06/2008 04:58:38 09/08/20 07 09/08/2007 basic metab olic panel GFR - if 109.2 mL/mi n for afric an ameri can patie nts: resul ts multi plied by 1.21 Not Available [address], [address], 12/06/2008 04:58:38 09/08/20 07 09/08/2007 basic metab olic panel sodium 141 mmol/ L 136-14 5 Not Available [address], [address], 12/06/2008 04:58:38 09/08/20 07 09/08/2007 basic metab olic panel potassium 4.3 mmol/ L 3.5-5. 1 Not Available [address], [address], 12/06/2008 04:58:38 09/08/20 07 09/08/2007 basic metab olic panel chloride 103 mmol/ L 96-107 Not Available [address], [address], 12/06/2008 04:58:38 09/08/20 07 09/08/2007 basic metab olic panel _anion gap 12.0 Not Available [address], [address], 12/06/2008 04:58:38 09/08/20 07 09/08/2007 basic metab olic panel CO2 26 mmol/ L 21-32 Not Available [address], [address], 12/06/2008 04:58:38 09/08/20 07 09/08/2007 basic metab olic panel calcium 8.8 mg/dL 8.5-10 .3 Not Available [address], [address], 12/06/2008 04:58:38 02/06/20 16 02/06/2016 lipid panel , serum cholesterol 143 mg/dL <200 mg/dl Yenny able 200-2 39 mg/dl Borde rline High >240 mg/dl High Not Available [address], [address], 02/06/2016 16:15:36 02/06/20 16 02/06/2016 lipid panel , serum triglyceride s 69 mg/dL <150 mg/dL Loreto l 150-1 99 mg/dL Borde rline High 200-4 99 mg/dL High >500 mg/dL Very High Not Available [address], [address], 02/06/2016 16:15:36 02/06/20 16 02/06/2016 lipid panel , serum direct HDL 40 mg/dL Not Available [address], [address], 02/06/2016 16:15:36 02/06/20 16 02/06/2016 gluco se, QN [mass /volu me], serum or plasm a glucose 79 mg/dL 70-100 Not Available [address], [address], 02/06/2016 16:15:37 02/06/20 16 02/06/2016 LDL, calcu lated , serum (OBS) LDL - calculated 89.2 RISK CATEG ORY LDL GOAL _ CHD or CHD Risk Equiv alent s <100 mg/dl (10-y ear risk >20%) 2+ Risk Facto rs <130 mg/dl (10-y ear risk <= 20%) 0-1 Risk Facto r? <160 mg/dl ? Almos t all peopl e with 0-1 risk facto r have a 10 year risk <10%, thus 10 year risk asses ment in peopl e with 0-1 risk facto r is not rima hou. Not Available [facility] [address] [facility] [address], [place], [address], 02/06/2016 16:15:37 Result Notes None recorded. Problems Name Problem SNOMED Code Status Onset Date Resolution Date Notes Provider Name and Address Organization Details Recorded Time Subserous leiomyoma of uterus 33150351 Active 2004 Not Available [facility] 3 03:11:27 Subjective visual disturbanc e 80151219 Completed 200108/30/2013 Not Available [facility] 3 02:04:09 Colitis, enteritis and gastroente ritis presumed infectious 716718500 Completed 200608/30/2013 Not Available [facility] 3 02:03:03 Cough 74468269 Completed 200408/30/2013 Not Available [facility] 3 02:01:08 Viral disease 24759557 Completed 200208/30/2013 Not Available [facility] 3 02:03:22 Hordeolum 203071117 Completed 200408/30/2013 Not Available [facility] 3 02:03:42 Extrinsic asthma with asthma attack Active 2004 Not Available [facility] 3 03:11:27 Right upper quadrant pain 373632327 Completed 200408/30/2013 Not Available [facility] 3 02:03:18 Diarrhea 40223864 Completed 200208/30/2013 Not Available [facility] 3 02:02:15 Acute cystitis 89347268 Completed 200408/30/2013 Not Available [facility] 3 02:02:32 Acute pharyngiti s 439430898 Completed 200608/30/2013 Not Available [facility] 3 02:01:17 Allergic rhinitis 53443519 Active 2003 Not Available [facility] 3 03:11:27 Common cold 04683896 Completed 200208/30/2013 Not Available [facility] 3 02:00:28 Abdominal pain 22221179 Completed 200208/30/2013 Not Available [facility] 3 02:01:21 Allergic rhinitis caused by pollen 05468473 Active 2006 Not Available [facility] 3 03:11:27 Respirator y finding 741208450 Completed 200508/30/2013 Not Available [facility] 3 02:04:02 Female genital organ symptoms 555929568 Completed 200208/30/2013 Not Available [facility] 3 02:03:07 Acute maxillary sinusitis 11539729 Completed 200608/30/2013 Not Available [facility] 3 02:01:42 Generalize d abdominal pain 460289186 Completed 200208/30/2013 Not Available [facility] 3 02:02:06 Dysuria 11499513 Completed 200408/30/2013 Not Available [facility] 3 02:02:00 Hypothyroi dism 32671891 Active 2004 Not Available [facility] 3 03:11:27 Viral upper respirator y tract infection 853981269 Completed 200408/30/2013 Not Available [facility] 3 02:03:11 Malaise and fatigue 772320153 Completed 200408/30/2013 Not Available [facility] 3 02:00:18 Problem Notes None recorded. Medical Equipment None Reported. Vitals None Recorded Social History None recorded. Functional Status None recorded. Mental Status None recorded. Family History Nothing Reported. Medical History No medical history recorded. Gynecological HistoryNo gynecological history recorded. Obstetrics History GPAL:G 0 P 0 0 0 0 Immunizations Vaccine Type Date Status Note Provider Nam e and Address Organization Details Recorded Time Tdap 11/17/2007 completed Not Available [facility] 08/26/2011 05:21:55 Tdap 11/17/2007 completed Not Available [facility] 08/26/2011 05:21:55 Past Encounters Encounter ID Performer Location Encounter Start Date Encounter Closed Date Diagnosis/Indication Diagnosis SNOMED-CT Code Diagnosis ICD10 Code Diagnosis Note [id number] [facility] [place] [address] [place] [id number] 02/22/2002 15:00:00 10/31/2008 02:02:29 [id number] [facility] [place] [address] [place] [address] 02/24/2002 15:00:00 10/31/2008 02:02:29 [id number] [facility] [place] [address] [place] [address] 03/08/2002 11:56:36 10/31/2008 02:02:29 [id number] [facility] [place] [address] [place] [address] 03/10/2002 12:06:39 10/31/2008 02:02:29 [id number] [place] [facility] [address] [facility] [place] [id number] 05/16/2002 09:01:24 10/31/2008 02:02:29 [id number] [facility] [place] [address] [place] [address] 12/11/2002 14:32:14 10/31/2008 02:02:29 [id number] [place] [facility] [place] [address] [facility] [place] [id number] 12/11/2002 00:00:00 10/31/2008 02:02:29 [id number] LAB - [address] [place] [id number] 12/11/2002 15:38:31 10/31/2008 02:02:29 [id number] [place] , [facility] [address] [facility] [place] [id number] 12/11/2002 15:09:59 10/31/2008 02:02:29 [id number] [facility] [place] [address] [place] [id number] 12/14/2002 15:01:09 10/31/2008 02:02:29 [id number] [facility] [place] [address] [place] [id number] 03/27/2003 12:26:46 10/31/2008 02:02:29 [id number] [facility] [place] [facility] [address] [place] [id number] 04/19/2003 00:00:00 10/31/2008 02:02:29 [id number] [facility] [place] [address] [place] [id number] 04/19/2003 10:18:24 10/31/2008 02:02:29 [id number] [facility] [place] [address] [place] [id number] 08/06/2003 13:58:25 08/06/2003 18:00:27 [id number] [facility] [place] [place] [address] [place] [id number] 11/14/2003 18:17:43 11/14/2003 18:19:15 [id number] [place] [facility] [place] [address] [place] [id number] 11/14/2003 00:00:00 10/31/2008 02:02:29 [id number] [facility] [place] [place] [address] [place] [id number] 12/27/2003 14:32:02 12/28/2003 09:31:14 [id number] [place], [facility] [place] [address] [place] [address] 01/09/2004 15:46:30 01/10/2004 13:29:11 [id number] [facility] [place] [place] [address] [place] [id number] 01/24/2004 08:34:56 01/24/2004 17:31:58 [id number] [place]iology , [facility] [place] [address] [place] [address] [id number] [facility] [place] [place] [address] [place] [id number] 11/13/2004 13:12:40 11/13/2004 17:49:53 [id number] [facility] [place] [facility] [place] [address] [place] [address] 11/13/2004 00:00:00 10/31/2008 02:02:29 [id number] [facility] [place] [place] [address] [place] [address] 12/04/2004 10:12:43 12/05/2004 09:54:08 [id number] [facility] [address] [place] [id number] 12/04/2004 00:00:00 10/31/2008 02:02:29 [id number] [facility] [place] [place] [address] [place] [address] 12/29/2004 09:26:53 12/30/2004 09:29:54 [id number] [facility] [address] [place] [address] 12/29/2004 00:00:00 10/31/2008 02:02:29 [id number] [facility] [place] [place] [address] [place] [address] 02/20/2005 14:01:16 02/20/2005 17:18:53 [id number] [facility] [place] [place] [address] [place] [id number] 03/05/2005 09:27:55 03/05/2005 14:51:24 [id number] [facility] [address] [place] [id number] 03/05/2005 00:00:00 10/31/2008 02:02:29 [id number] [facility] [place] [place] [address] [place] [id number] 03/31/2005 13:20:32 04/01/2005 09:48:[id number] [place] [id number] 03/31/2005 00:00:00 10/31/2008 02:02:29 [id number] [facility] [place] [place] [address] [place] [address] 08/11/2005 08:01:12 08/11/2005 16:37:[id number] [place] [address] 08/11/2005 00:00:00 10/31/2008 02:02:29 [id number] [facility] [place] [place] [address] [place] [address] 08/26/2005 14:47:05 08/27/2005 13:57:[id number] [place] [address] 08/26/2005 00:00:00 10/31/2008 02:02:29 [id number] [place] [facility] [address] [place] [id number] 09/02/2005 16:03:09 09/02/2005 16:03:27 [id number] [facility] [place] [place] [address] [place] [id number] 09/14/2005 14:41:55 09/15/2005 08:19:55 [id number] [facility] [place] [facility] [address] [place] [id number] 09/14/2005 00:00:00 10/31/2008 02:02:29 [id number] [facility] [place] [place] [address] [place] [id number] 08/31/2005 08:21:10 10/31/2008 02:02:29 [id number] [facility] [place] [facility] [place] [address] [place] [id number] 08/31/2005 00:00:00 10/31/2008 02:02:29 [id number] [facility] [place] [place] [address] [place] [id number] 10/30/2005 09:12:18 10/30/2005 17:37:19 [id number] [facility] [place] [place] [address] [place] [id number] 11/13/2005 11:25:52 11/16/2005 08:33:06 [id number] [facility] [place] [facility] [address] [place] [address] 11/13/2005 00:00:00 10/31/2008 02:02:29 [id number] [facility] [place] [place] [address] [place] [id number] 02/25/2007 08:16:07 02/28/2007 13:26:06 [id number] [facility] [place] [address] [place] [id number] 09/05/2007 10:23:09 10/31/2008 02:02:29 [id number] [facility] [place] [facility] [place] [address] [place] [id number] 09/08/2007 11:52:54 09/08/2007 11:53:03 [id number] [facility] [place] [place] [address] [place] [id number] 11/17/2007 10:22:50 10/31/2008 02:02:29 Health Concerns Section Related Observation LastModified by Organization Detai ls LastModified Time None Recorded Concern Status LastModified by Organization Details LastModified Time None Recorded Advance Directives Directive None Recorded Payers Encounter Date Sequence Insurance Name Policy Number Policy Arteaga Covered Member ID Arteaga Member ID Guarantor Name 11/13/2005 1 [facility] Bret [id number] Henrietta Queen 02/23/2007 1 [facility] Bret [id number] Henrietta Queen 09/05/2007 1 [facility] Bret [id number] Henrietta Queen 09/08/2007 1 [facility] Bret [id number] Henrietta Queen 11/17/2007 1 [id number] Henrietta Queen OBGyn Episode No OBEpisode recorded.
== END 2025-01-19 08:08 | disposition home or self-care (01) ==
LOC: HO.MAMMO 08:07
PROVIDERS: PCP Internal Medicine; Visit Provider Internal Medicine
DX: Z12.31 Encounter for screening mammogram for malignant neoplasm of breast (principal)
CPT/HCPCS: 77063; 77067

== ENCOUNTER → 2025-01-19 08:15 | Outpatient (BNV) | payer SELFPAY | PROVIDERS: PCP Internal Medicine; Visit Provider Internal Medicine | DX: Z12.31 Encounter for screening mammogram for malignant neoplasm of breast (principal) | CPT/HCPCS: 77063; 77067 ==

== ENCOUNTER 2025-04-28 23:04 | Emergency (ER) | payer OTHER, SELFPAY ==
--- NOTE | ~2025-04-28 | CT_ITS ---
CLINICAL HISTORY: Pleurisy; SOB CT angiography chest with contrast. 3D Postprocessing. Comparison: CT/MI - CT ABDOMEN PELVIS W IV CON - 09/24/23 14:42 EST Findings: The heart is normal size. RV/LV ratio is normal. The thoracic aorta is normal caliber. No acute pulmonary embolus to the lobar or segmental level The visualized thyroid and mediastinum are unremarkable. No consolidation or effusion. The visualized upper abdomen is unremarkable. The bones are intact. IMPRESSION: 1. No pulmonary embolus. 2. No pulmonary parenchymal consolidation This document has been electronically signed by: Mushtaq Rivera III, MD PHD on 04/29/2025 02:55:53
[2025-04-28 23:08] VITALS: BP 153/83; PULSE 82; RESP 20; TEMP 36.5; O2SAT 98; BMI 31.9
--- NOTE | 2025-04-28 23:10 | ECG_ITS ---
Test Reason : cp Blood Pressure : */* mmHG Vent. Rate : 74 BPM Atrial Rate : 74 BPM P-R Int : 178 ms QRS Dur : 84 ms QT Int : 394 ms P-R-T Axes : 53 13 22 degrees QTcB Int : 437 ms Normal sinus rhythm Normal ECG When compared with ECG of 30-Oct-2005 21:03, No significant change was found Referred By: Generic ED Physician Electronically Signed By: ALLAN ORO
[2025-04-29 00:28] VITALS: BP 122/74; PULSE 74; RESP 16; TEMP 36.4; O2SAT 97
--- NOTE | 2025-04-29 00:35 | PC.NURSE ---
Patient ambulated to bathroom with steady gait.
[2025-04-29 00:53] LABS: MANUAL DIFF FLAG NO
[2025-04-29 01:05] LABS: Hematocrit 40.6 % (37.0-47.0); Hemoglobin 14.3 g/dl (12.0-16.0); Imm Gran Abs Auto 0.05 X10*3/uL (0.00-0.03); Imm Gran Pct Auto 0.5 % (0.0-0.4); Lymphocytes Absolute Auto 3.6 X10*3/uL (1.2-4.9); Mean Corpuscular HGB Conc 35.2 g/dl (31.0-35.0); Mean Corpuscular Hemoglobin 31.3 pg (27.0-33.0); Mean Corpuscular Volume 88.8 fL (80.0-98.0); NRBC Abs Auto 0.000 X10*3/uL (0.0-0.012); NRBC Pct Auto 0.0 /100WBC (0.0-0.2); Platelet Count 229 X10*3/uL (160-400); Red Blood Count 4.57 X10*6/uL (4.20-5.50); White Blood Count 11.0 X10*3/uL (4.8-10.8)
[2025-04-29 01:15] LABS: Alanine Aminotransferase 14 U/L (0-31); Albumin Level 4.1 g/dL (3.5-5.0); Alkaline Phosphatase 79 U/L (39-117); Anion Gap 12 (12-20); Aspartate Amino Transferase 18 U/L (5-31); Blood Urea Nitrogen 14 mg/dL (9-16); Calcium 9.0 mg/dL (8.4-10.2); Carbon Dioxide 27 mmol/L (22-29); Chloride 108 mmol/L (96-108); Creatinine Clr Calc Pharmacy 85.8; Estimated Glomerular Filt Rate > 60; Potassium 3.5 mmol/L (3.3-5.1); Sodium 143 mmol/L (135-145); Total Protein 6.6 g/dL (6.5-8.0)
--- NOTE | 2025-04-29 01:16 | ED_ITS ---
HPI - Chest Pain General Chief Complaint: Chest Pain Stated Complaint: left side abd pain Time Seen by Provider: 04/29/25 01:14 Source: patient Mode of arrival: ambulatory Limitations: no limitations History of Present Illness ED Provider: Norbert MEDINA HPI narrative: The patient is a 45-year-old female presenting to the ED for evaluation of pleuritic chest pain under the left breast which began at approximately 19:30 tonight. Patient reports she was at rest when pain began suddenly, patient reports history of GI pathology including gastritis, attempted antacids, ibuprofen, Gas-X, movement, bowel movement, and stretching without relief. The patient reports pain is not reproducible with movement or palpation but does increase with deep respiration. The patient denies associated cough, hemoptysis, lower extremity complaint, history of coagulopathy, recent travel, or use of control. The patient denies any recent sick contacts or trauma. Related Data Home Medications ?Medication ?Instructions ?Recorded ?Confirmed albuterol sulfate 90 mcg/actuation 2 puff inhalation Q 6H PRN 04/11/21 03/29/24 aerosol inhaler (Ventolin HFA) Shortness Of Breath Or Wheezing multivitamin 1 tab PO DAILY 03/01/2403/11 Previous Rx's ?Medication ?Instructions ?Recorded mesalamine 1,000 mg rectal 1 g SD BEDTIME 30 days #30 ea 08/02/24 suppository mesalamine 1.2 gram tablet,delayed 2.4 g (2 x 1.2 gram ) PO DAILY 90 08/02/24 release (Lialda) days #180 tabs Allergies Allergy/AdvReac Type Severity Reaction Status Date / Time codeine (Codeine) Allergy Intermediate AGITATION Verified 04/28/25 23:10 amoxicillin (Augmentin) AdvReac Intermediate rash Verified 04/28/25 23:10 clavulanic acid (Augmentin) AdvReac Intermediate rash Verified 04/28/25 23:10 Review of Systems 2 Review of Systems: Yes all other systems are reviewed and are negative [facility] Past Medical History Medical History Asthma Family history of colon cancer Left lower quadrant abdominal tenderness with rebound tenderness Complex cyst of right ovary Hemorrhagic cyst of left ovary Surgical History History of wisdom tooth extraction, class II edentulism History of partial hysterectomy Hx of section Family History Family History Father Parkinson disease TIA (transient ischemic attack) High blood pressure Mother Diabetes High blood pressure Paternal Aunt Colon cancer Social History Social History Housing: House Alcohol intake: current Alcohol intake frequency: holidays/special occasions only Alcohol type: hard liquor Patient Tobacco Use Status: Never used Tobacco e-Cigarette/Vaping Use: Never Used Use of substances other than those prescribed or required for medical reasons: No Advance Directives: No Advance Directives Information Provided: Yes service: No Current occupational status: employed 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 Vital signs as documented. HEAD: Atraumatic, normocephalic. EYES: EOMs grossly intact, pupils equal, conjunctiva clear, no exudate. ENT: Nares patent, no discharge. Airway patent, no audible stridor, visible mucosa is pink and moist without noted lesions. NECK: Trachea is midline, no obvious masses or gross abnormalities. CHEST: Symmetric movement, normal appearance. No tenderness to palpation, palpation does not reproduce the patient's pain. LUNGS: LS present and CTAB, no w/r/r. Non-labored work of breathing. CARDIAC: Regular Rhythm, S1/S2 appreciated, no murmurs, rubs or gallops. ABDOMEN: Abdomen soft and non-tender x4 quadrants, no palpable masses or organomegaly. : Deferred. EXTREMITIES: Normal tone, moves all extremities spontaneously without reported pain. No obvious acute injury or deformity noted. No swelling, no calf tenderness. NEURO: Alert and oriented x3, CN II-XII appear grossly intact. Cerebellar Functioning grossly intact. No obvious sensory or motor deficits. Speech clear and appropriate. PSYCH: normal affect, appropriate eye contact, fluid speech, with appropriate response to questioning. No reported suicidality or homicidality. SKIN: Warm, dry, color appropriate, normal turgor. No rashes noted. Medications Administered Discontinued Medications Generic Name Dose Route Start Last Admin Trade Name Zakia PRN Reason Stop Dose Admin Iohexol 65 ml 04/29/25 01:38 04/29/25 01:39 Iohexol 350 Mg/Ml 100 Ml Infus..Btl IV 04/29/25 01:39 65 ml ONCE ONE Administration Medical Decision Making Medical Decision Making [facility] Narrative: 2:05 AM 04/29/2025 (Shiva MEDINA): The patient is a 45-year-old female presenting to the ED for sudden onset atraumatic pleuritic chest pain under the left breast which began at approximately 19:30 and has not resolved despite multiple attempted interventions. The patient appears in no acute distress in the ED, lung sounds are clear, pain is not reproducible with palpation. The patient's abdominal exam is benign. The patient's laboratory evaluation is largely reassuring, mild leukocytosis of 11, no anemia, no electrolyte abnormality or MELODY. Patient's LFTs are normal. Troponin is negative. EKG is nonischemic. The patient's well's score is moderate due to PE being the number one diagnosis or equally likely, patient will be sent for CTA chest to rule out coagulopathic process. 3:27 AM 04/29/2025 (Shiva MEDINA): The patient's CT chest has resulted and shows no evidence of blood clot or other acute process. The patient's workup is markedly reassuring, there was no evidence of any acute emergent cause for the patient's symptoms. The patient will be treated with Toradol, lidocaine patch, and discharged to follow up with PCP. Admission/Observation Consideration of admission/observation: Escalation of care including admission/observation considered Lab Data [facility] Lab Attestation statement: I reviewed the patient's lab results. 04/29/25 00:40 04/29/25 00:40 Labs: Lab Results 04/29/25 Range/Units 00:40 WBC 11.0 H (4.8-10.8) X10*3/uL RBC 4.57 (4.20-5.50) X10*6/uL Hgb 14.3 (12.0-16.0) g/dl Hct 40.6 (37.0-47.0) % MCV 88.8 (80.0-98.0) fL MCH 31.3 (27.0-33.0) pg MCHC 35.2 H (31.0-35.0) g/dl RDW 12.3 (11.0-16.0) % Plt Count 229 (160-400) X10*3/uL MPV 10.5 (9.4-12.3) fL Immature Gran % (Auto) 0.5 H (0.0-0.4) % Neut % (Auto) 59.4 (45-73) % Lymph % (Auto) 32.3 (20-40) % [place] % (Auto) 5.5 (2-11) % Eos % (Auto) 1.8 (0-4) % Baso % (Auto) 0.5 (0-2) % Lymph # (Auto) 3.6 (1.2-4.9) X10*3/uL [place] # (Auto) 0.6 (0.1-1.2) X10*3/uL Eos # (Auto) 0.2 (0.0-0.4) X10*3/uL Baso # (Auto) 0.1 (0.0-0.2) X10*3/uL Abs Immat Gran (auto) 0.05 H (0.00-0.03) X10*3/uL Absolute Neuts (auto) 6.6 (2.0-8.3) x10*3/uL Absolute Nucleated RBC 0.000 (0.0-0.012) X10*3/uL Nucleated RBC % (auto) 0.0 (0.0-0.2) /100WBC Sodium 143 (135-145) mmol/L Potassium 3.5 (3.3-5.1) mmol/L Chloride 108 (96-108) mmol/L Carbon Dioxide 27 (22-29) mmol/L Anion Gap 12 (12-20) BUN 14 (9-16) mg/dL Creatinine 0.82 (0.5-1.4) mg/dL Estim Creat Clear Calc 85.8 Estimated GFR > 60 Random Glucose 91 (60-115) mg/dL Calcium 9.0 (8.4-10.2) mg/dL Total Bilirubin 0.4 (0.0-1.0) mg/dL AST 18 (5-31) U/L ALT 14 (0-31) U/L Alkaline Phosphatase 79 (39-117) U/L Troponin I High Sens < 2.7 (<3.5-17.0) ng/L Total Protein 6.6 (6.5-8.0) g/dL Albumin 4.1 (3.5-5.0) g/dL Independent Interpretation I performed an independent interpretation of an: EKG (EKG shows sinus rhythm with a rate of 74, no evidence of acute ischemia, no ST elevation, no ectopy. QTC 437. Compared to previous on 10/30/2005 there are no acute morphology changes. ) Discharge Plan Discharge Clinical Impression: Atypical chest pain Patient Disposition: Home, Self-Care Instructions: Chest Wall Pain (ED), Noncardiac Chest Pain (ED) Additional Instructions: Thank you for choosing [facility]'s Emergency Department for your care today. Thankfully your laboratory evaluation, EKG, chest CT, and exam today are all reassuring. There is no evidence of any emergent cardiac, pulmonary, coagulopathic (blood clot), metabolic, or infectious cause for your chest pain. At this time there is no indication for admission to the hospital or continued ED observation, and it is safe to discharge you home. You may take alternating (staggered) doses of ibuprofen 600mg and Tylenol 1000mg every 4 hours as needed for any additional pain. Please stay well hydrated and get plenty of rest. Please follow up with your primary care physician for re-evaluation, additional management of your symptoms, and continued preventative care. If you do not have a primary care physician, please call the [facility] at [phone] to establish a new primary care physician. While waiting to establish your new primary care physician, you can call our [facility] at [phone] for non-emergency needs. Please return to the emergency department if you develop a severe or sudden change in your symptoms, a fever over 100.4 that does not improve with Tylenol or Ibuprofen, recurrent vomiting, or any other new or worsening symptoms or concerns. Prescriptions: No Action albuterol sulfate [Ventolin HFA] 90 mcg/actuation HFA aerosol inhaler 2 puff inhalation Q6H PRN (Reason: Shortness Of Breath Or Wheezing) multivitamin Tablet 1 tab PO DAILY mesalamine [Lialda] 1.2 gram tablet,delayed release (DR/EC) 2.4 g PO DAILY 90 Days Qty: 180 1RF mesalamine 1,000 mg suppository 1 g SD BEDTIME 30 Days Qty: 30 5RF Referrals: Kusum Regan MD [Primary Care Provider, Internal Medicine] Clinical Impression: Atypical chest pain Print Language: Guinean
[2025-04-29 01:21] LABS: Troponin-I High Sensitivity < 2.7 ng/L (<3.5-17.0)
[2025-04-29] MEDS: iohexoL 350 MG/ML 100 ML INFUS..BTL 65 ML IV (01:39)
[2025-04-29] MEDS: Lidocaine 4 % Patch ADH..PATCH 1 PATCH TRANSDERMA (03:59)
[2025-04-29 04:04] VITALS: BP 121/74; PULSE 74; RESP 18; TEMP 36.4; O2SAT 98
== END 2025-04-29 04:05 | disposition home or self-care (01) ==
PROVIDERS: Emergency Provider Emergency Medicine Emergency Medical Services; PCP Internal Medicine
DX: R07.89 Other chest pain (principal); R10.2 Pelvic and perineal pain; Z79.899 Other long term (current) drug therapy
CPT/HCPCS: 36415; 71275; 80053; 84484; 85025; 93005; 96374; 99284; 99285; J1885; Q9967

== ENCOUNTER → 2025-04-28 23:10 | Outpatient (BNV) | payer OTHER, SELFPAY | PROVIDERS: Emergency Provider Emergency Medicine Emergency Medical Services; PCP Internal Medicine; Visit Provider Internal Medicine | DX: R07.89 Other chest pain (principal) | CPT/HCPCS: 93010 ==

== ENCOUNTER → 2025-04-29 01:23 | Outpatient (BNV) | payer OTHER, SELFPAY | PROVIDERS: Emergency Provider Emergency Medicine Emergency Medical Services; PCP Internal Medicine; Visit Provider Radiology Diagnostic Radiology | DX: R06.02 Shortness of breath (principal) | CPT/HCPCS: 71275 ==

== ENCOUNTER 2025-06-26 07:47 | Outpatient (REF) | payer OTHER, SELFPAY ==
--- OUTSIDE RECORDS SUMMARY | 2025-06-26 07:49 | XMS_ITS ---
Author Name Ladonna Fitzgerald Address Unknown Organization [facility] Care Team Providers Care Marble Helper Name Role Phone Unavailable Primary Care Physician Unavailab le History Of Present Illness This is a 45 year old female who is an established patient who presents to clinic today for a full body skin check. She has a family history of basal cell carcinoma or squamous cell carcinoma, a family history of melanoma, and no history of previous skin cancer. She has no lesions of concern today. Allergies, Adverse Reactions, Alerts Substance RxNorm Reaction(s) Severity Status Start Da te Augmentin 990511 unspecified active codeine 2670 unspecified active cat dander Rash, Shortness of Breath, Weal moderat e active 03/26/1984 Medications Medication Generic Name RxNorm Strength Strength Unit Route Dose Dose Form Frequency Date Started Date Ended Status Indication Sig ketoconazol e ketocona zole 421351 2 % Topica l apply to affec gemma areas shamp oo PRN 06/16/20 24 active Lath er on affe cted area s, let sit for 5 jose enrique odessa, then rins e. Once impr eliseo use week ly as prev enti on. mometasone mometaso ne 703371 0.1 % Topica l apply thin layer ointm ent PRN 06/11/20 23 active Appl y twic e scot y as need ed to affe cted area s on hand s up to 2 week s on, 1 week off. Can repe at cour se afte r off week . Avoi d face , armp its, groi n. Ventolin HFA albutero l sulfate NULL 90 mcg/actua tion Inhala tion 1 puff hfa aeros ol inhal er PRN 07/27/20 17 active Flonase Allergy Relief fluticas one propiona te 50 mcg/actua tion Intran lulu 1 spray , suspe nsion PRN active doxycycline hyclate doxycycl ine hyclate 6277263 100 mg Oral capsu le 06/09/20 22 suspend ed Take one pill twic e scot y with food for 10 days . no dair y, do not lay flat afte r christiani Aris laoyrhowie cetirizi ne 9578148 10 mg Oral 1 table t PRN 07/27/20 17 active mesalamine mesalami [place] 529823 1,000 mg Rectal 1 suppo sitor y PRN active Azithromyci n NULL 03/17/20 18 active Ciclopirox Olamine NULL 07/27/20 17 suspend ed Clindamycin Phosphate NULL 18 suspend ed Diclofenac Sodium NULL 03/17/20 18 suspend ed Diclofenac Sodium NULL 03/17/20 18 suspend ed Fluticasone Propionate NULL 07/27 17 suspend ed Junel 10/30 NULL 07/27/20 17 active Lidocaine Viscous NULL 03/17/20 18 active TiZANidine HCl NULL 03/17/20 18 suspend ed Problems Problem Code Type Status Date of Diagnosis Da te of Resolution Melanocytic nevus of trunk (disorder) 906734342(SN OMED) Diagnosis active 06/21/2025 Hemangioma of skin and subcutaneous tissue (disorder) 071260200(SN OMED) Diagnosis active 06/21/2025 Disorder of pigmentation (disorder) 372354897(SN OMED) Diagnosis active 06/21/2025 Disorder of skin (disorder) 34262889(SNO MED) Diagnosis active 06/21/2025 Caf au lait spot (disorder) 978938953(SN OMED) Diagnosis active 06/21/2025 Follicular cysts of skin and subcutaneous tissue (disorder) 995390570(SN OMED) Diagnosis active 06/21/2025 Family history of malignant neoplasm (situation) 029232952(SN OMED) Diagnosis active 06/21/2025 Melanocytic nevus of trunk (disorder) 660272171(SN OMED) Diagnosis active 06/16/2024 Furuncle of buttock (disorder) 02551047(SNO MED) Diagnosis active 06/16/2024 Boil of lower limb (disorder) 588661201(SN OMED) Diagnosis active 06/16/2024 Boil of back (disorder) 982010415(SN OMED) Diagnosis active 06/16/2024 Boil of lower limb (disorder) 349238787(SN OMED) Diagnosis active 06/16/2024 Hemangioma of skin and subcutaneous tissue (disorder) 192582348(SN OMED) Diagnosis active 06/16/2024 Disorder of pigmentation (disorder) 126128432(SN OMED) Diagnosis active 06/16/2024 Pityriasis versicolor (disorder) 49907381(SNO MED) Diagnosis active 06/16/2024 Family history of malignant neoplasm (situation) 008063110(SN OMED) Diagnosis active 06/16/2024 Neoplasm of uncertain behavior of skin (disorder) 54348737(SNO MED) Diagnosis active 06/11/2023 Melanocytic nevus of trunk (disorder) 535922643(SN OMED) Diagnosis active 06/11/2023 Vesicular eczema (disorder) 548870129(SN OMED) Diagnosis active 06/11/2023 Furuncle of buttock (disorder) 98407915(SNO MED) Diagnosis active 06/11/2023 Boil of lower limb (disorder) 863645943(SN OMED) Diagnosis active 06/11/2023 Boil of back (disorder) 550131153(SN OMED) Diagnosis active 06/11/2023 Boil of lower limb (disorder) 513010381(SN OMED) Diagnosis active 06/11/2023 Hemangioma of skin and subcutaneous tissue (disorder) 569769508(SN OMED) Diagnosis active 06/11/2023 Disorder of pigmentation (disorder) 344138875(SN OMED) Diagnosis active 06/11/2023 Inflamed seborrheic keratosis (disorder) 790632476(SN OMED) Diagnosis active 12/17/2022 Melanocytic nevus (disorder) 335130411(SN OMED) Diagnosis active 12/17/2022 Hemangioma of skin and subcutaneous tissue (disorder) 556860144(SN OMED) Diagnosis active 12/17/2022 Follicular cysts of skin and subcutaneous tissue (disorder) 216588768(SN OMED) Diagnosis active 07/15/2022 Epidermoid cyst of skin (disorder) 573956922(SN OMED) Diagnosis active 06/09/2022 Follicular cysts of skin and subcutaneous tissue (disorder) (SN OMED) Diagnosis active 03/17/2018 Epidermoid cyst of skin (disorder) 337483071(SN OMED) Diagnosis active 12/06/2017 Melanocytic nevus of trunk (disorder) 885308494(SN OMED) Diagnosis active 07/27/2017 Asthma (disorder) 974836215(SN OMED) Problem active History of clinical finding in subject (situation) 115839489(SN OMED) Problem active Results No data Encounters Service provided at [address], [address], [place], [place] [id number]. Office phonenumber is [phone]. Office fax number is [phone]. Encounter Diagnosis Location Date / Time Type Melanocytic Nevi (D22.5)Alexia ry Angiomas (D18.01)Lentigines (L81.4)Folliculitis (L73.9)Cafe au lait patch (L81.3)Cyst (L72.8)Family history of malignant melanoma (Z80.8) [facility] 06/21/2025 12:15:00 [facility] [id number] Reason For Referral No data Procedures Procedure Date Documentation of current medications (pr ocedure) 06/21/2025 12:00 am [facility] Shave biopsy (procedure) 06/11/2023 12:0 0 am [facility] Cryotherapy of skin lesion with liquid n itrogen (procedure) 12/17/2022 12:00 am [facility] Documentation of past medical history (p rocedure) Documentation of past medical history (p rocedure) Documentation of past medical history (p rocedure) Documentation of past medical history (p rocedure) Documentation of past medical history (p rocedure) Documentation of past medical history (p rocedure) Documentation of past medica l history (procedure) 2 C-sections;Hysterectomy; wisdom teeth removal Review Of Systems Provider reviewed on Jun 21, 2025.A focused review of systems was performed including Integumentary.No Problems With Healing And No Problems With Scarring (hypertrophic Or Keloid). Assessment 1.Melanocytic NeviCounseling2.Valdez AngiomasCounseling3.LentiginesCounseling4.FolliculitisTreatment Regimen: lower back; left buttock; right buttock; right posterior thigh; left posterior thigh; Initiate Treatment - Sulfur Basil wash OTC.5.Cafe au lait patchCounseling6.CystCounseling7.Family history of malignant melanoma - FatherCounseling Plan of Care Future visit for 06/21/2026 - Follow up in 1 year for: Skin Check Code Detail Instructions 093004 ketoconazole 2 % shampoo Lather on affected areas, let sit for 5 minutes, then rinse. Once improved use weekly as prevention. 775332 mometasone 0.1 % topical ointmen t Apply twice daily as needed to affected areas on hands up to 2 weeks on, 1 week off. Can repeat course after off week. Avoid face, armpits, groin. 0545251 doxycycline hyclate 100 mg capsu le Take one pill twice daily with food for 10 days. no dairy, do not lay flat after taking, Instructions * I counseled the patient regarding the following:Advise self-skin checks every 1-2 months to monitorfor any changes in moles.Photoprotection reviewed in detail and encouraged. Reviewed signs/symptomsof skin cancer.Contact office if any moles change in size, shape or color, or become symptomatic including itching, burning, bleeding.I recommended the following: Broad Spectrum Sunscreen SPF 30+ - Appropriate use of sunscreen and sun protective measures reviewed.Self-Skin Exams * I counseled the patient regarding the following:Valdez angiomas are banal vascular growths. No treatment is necessary. * I counseled the patient regarding the following:Photoprotection should be used to prevent development of further lentigines. Photoprotection was reviewed in detail and encouraged. * Begin the following treatment(s): Sulfur Basil wash OTC. * I counseled the patient regarding the following:Discussed that these macules and patches are commonoccurrences. No treatment is indicated. * I counseled the patient regarding the following:Discussed banal etiology. No treatment is needed but surgical removal can be performed if desired. Discourage manipulation. * I counseled the patient regarding the following:Discussed that patients with a family history of melanoma from a 1st degree relative have a higher risk of developing a melanoma compared with the restof the population. Monthly to quarterly self-skin checks should be performed to monitor for any moles that change in size, shape or color, itch burn or bleed. Photoprotection reviewed in detail and encouraged.Contact Office if: Patient notices any new concerning or changing moles. Social History Code Activity Start Date End Date [id number] (SNOMED) Never smoker Sex female Sexual orientation Unspecified Gender identity Unspecified Vital Signs No data
[2025-06-26 11:12] LABS: Hematocrit 41.5 % (37.0-47.0); Hemoglobin 14.1 g/dl (12.0-16.0); Mean Corpuscular HGB Conc 34.0 g/dl (31.0-35.0); Mean Corpuscular Hemoglobin 31.0 pg (27.0-33.0); Mean Corpuscular Volume 91.2 fL (80.0-98.0); NRBC Abs Auto 0.000 X10*3/uL (0.0-0.012); NRBC Pct Auto 0.0 /100WBC (0.0-0.2); Platelet Count 257 X10*3/uL (160-400); Red Blood Count 4.55 X10*6/uL (4.20-5.50); White Blood Count 7.7 X10*3/uL (4.8-10.8)
[2025-06-26 11:52] LABS: Alanine Aminotransferase 12 U/L (0-31); Albumin Level 4.1 g/dL (3.5-5.0); Alkaline Phosphatase 72 U/L (39-117); Anion Gap 10 (12-20); Aspartate Amino Transferase 19 U/L (5-31); Blood Urea Nitrogen 9 mg/dL (9-16); Calcium 8.7 mg/dL (8.4-10.2); Carbon Dioxide 27 mmol/L (22-29); Chloride 110 mmol/L (96-108); Estimated Glomerular Filt Rate > 60; Potassium 4.5 mmol/L (3.3-5.1); Sodium 142 mmol/L (135-145); Total Protein 6.4 g/dL (6.5-8.0)
== END 2025-06-26 07:48 | disposition home or self-care (01) ==
LOC: HO.HMGCLDS 07:47
PROVIDERS: PCP Internal Medicine; Visit Provider Internal Medicine
DX: K51.219 Ulcerative (chronic) proctitis with unspecified complications (principal)
CPT/HCPCS: 36415; 80053; 85027; 86140

== ENCOUNTER 2025-06-27 09:30 | Outpatient (REF) | payer OTHER, SELFPAY ==
[2025-07-04 20:29] LABS: Calprotectin, Fecal 13 mcg/g
== END 2025-06-27 09:31 | disposition home or self-care (01) ==
LOC: HO.HMGCLNP 09:30
PROVIDERS: PCP Internal Medicine; Visit Provider Internal Medicine
DX: Z00.01 Encounter for general adult medical examination with abnormal findings (principal); Z23 Encounter for immunization; M25.551 Pain in right hip; E55.9 Vitamin D deficiency, unspecified; G56.03 Carpal tunnel syndrome, bilateral upper limbs; K51.219 Ulcerative (chronic) proctitis with unspecified complications; K64.4 Residual hemorrhoidal skin tags; Z71.89 Other specified counseling
CPT/HCPCS: 83993; 90471; 90656; 96127; 99497

== ENCOUNTER 2025-06-27 10:16 | Outpatient (AMB) | payer OTHER, SELFPAY ==
[2025-06-27 10:37] VITALS: BP 106/74; PULSE 81; RESP 16; O2SAT 96; BMI 34.5
--- NOTE | 2025-06-27 10:37 | MHC.PC.OV ---
Vital Signs 06/27/25 10:37 Height 5 ft 3 in Weight 195 lb BMI 34.5 BP 106/74 Blood Pressure Location Lt brachial Position Sitting Respiration 16 Pulse 81 Pulse Source Pulse Oximeter Pulse Oximetry (%) 96 Oxygen Delivery Method Room Air Intake Visit Reasons: PE [email or web address].[email or web address]/09 Intake Note: Pt is here today for her PE: Last mammogram 01/19/25 Allergies codeine (Codeine) Allergy (Intermediate, Verified 06/27/25 11:03) AGITATION amoxicillin (Augmentin) Adverse Reaction (Intermediate, Verified 06/27/25 11:03) rash clavulanic acid (Augmentin) Adverse Reaction (Intermediate, Verified 06/27/25 11:03) rash Medication List - Last Reconciled 06/27/25 by Kusum Regan MD albuterol sulfate 90 mcg/actuation (Ventolin HFA) 2 puffs inhalation Q6H PRN mesalamine (Lialda) 2.4 grams (2 x 1.2 gram) PO DAILY 90 days mesalamine 1 g ID BEDTIME 30 days multivitamin 1 tab PO DAILY Tobacco use date assessed: 06/27/25 Dental Screening Dental Screen Date: 06/27/25 Did you have a dental visit in the last 12 months?: No Did you have a dental problem in the last 6 months where you did not have access to dental care?: No Was dental information given to patient?: Patient has dentist HPI PE [email or web address].04/09 HPI Details 45-year-old lady with history of ulcerative proctitis, 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 She is up-to-date with her screening mammogram, done earlier this year with negative findings [facility] Medical History (Updated 06/27/25 @ 11:32 by Kusum Regan MD) External hemorrhoid Lateral pain of right hip Asthma Family history of colon cancer Left lower quadrant abdominal tenderness with rebound tenderness Complex cyst of right ovary Hemorrhagic cyst of left ovary Surgical History (Updated 06/27/25 @ 11:30 by Kusum Regan MD) History of total abdominal hysterectomy H/O bilateral salpingectomy History of wisdom tooth extraction, class II edentulism Hx of section Family History Father Parkinson disease TIA (transient ischemic attack) High blood pressure Mother Diabetes High blood pressure Paternal Aunt Colon cancer Social History Housing: House Alcohol intake: current Alcohol intake frequency: holidays/special occasions only Alcohol type: hard liquor Patient Tobacco Use Status: Never used Tobacco e-Cigarette/Vaping Use: Never Used service: No Current occupational status: employed 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 1. Little interest or pleasure in doing things: not at all 2. Feeling down, depressed, or hopeless: not at all 3. Trouble falling or staying asleep, or sleeping too much: not at all 4. Feeling tired or having little energy: not at all 5. Poor appetite or overeating: not at all 6. Feeling bad about yourself - or that you are a failure or have let yourself or your family down: not at all 7. Trouble concentrating on things, such as reading the newspaper or watching television: not at all 8. Moving or speaking so slowly that other people could have noticed. Or the opposite - being so fidgety or restless that you have been moving around a lot more than usual: not at all 9. Thoughts that you would be better off or of hurting yourself in some way: not at all Total score: 0 Depression Screening Interpretation: Negative Depression Screening Done: Yes 30118 - PHQ-9 Billing: Yes Source: Developed by Drs. Terry Woods, Luiza Gale, Silvano Espinoza and colleagues, with an educational sarah from [employer]. Thrive Questionnaire Date Thrive assessed: 03/27/25 I am a: Patient What is your living situation today?: I have a steady place to live Within the past 12 months, did the food you bought not last and you didn't have the money to get more?: Never true Within the past 12 months, did you worry whether your food would run out before you got money to buy more?: Never true Do you have trouble paying for medicines?: No Do you have trouble getting transportation to medical appointments?: No Do you have trouble paying your heating and electricity bill?: No Do you have trouble taking care of your child, family member or friend?: No Do you have trouble with day-to-day activities such as bathing, preparing meals, shopping, managing finances, etc.?: No Are you currently unemployed and looking for a job?: No Are you interested in more education?: No Please select the resources that you would like help with: None Currently or been in a relationship where the following occur: No concerns reported THRIVE Score: 0 AUDIT C Alcohol Use Questionnaire (AUDIT-C) 1. How often do you have a drink containing alcohol?: Never Total Score: 0 Score Reviewed/Action Taken: Yes KJ-7 AMB Questionnaire KJ-7 Date KJ - 7 assessed: 03/01/24 Feeling nervous, anxious, or on edge: 0 = Not at all Not being able to stop or control worryin = Not at all Worrying too much about different things: 0 = Not at all Trouble relaxin = Not at all Being so restless that it is hard to sit still: 0 = Not at all Becoming easily annoyed or irritable: 0 = Not at all Feeling afraid as if something awful might happen: 0 = Not at all Total KJ-7 score (0-4 normal; 5-9 mild; 10-14 moderate; 15-21 severe): 0 Source: Developed by Drs. Terry Woods, Luiza Gale, Silvano Espinoza and colleagues, with an educational sarah from [employer]. KJ-7 Assessment Billing KJ-7 Assessment Tool: KJ-7 Assessment 55996 Review of Systems Const Denies headache(s) ENT Denies vertigo, Denies dizziness and Denies headache(s) Card Denies chest pain and Denies dyspnea Resp Denies dyspnea GI Denies diarrhea, Denies nausea and Denies vomiting Details: Goes to [facility] [place] Reports as per HPI Skin/Breast Reports other ([place] Neuro Denies vertigo, Denies dizziness and Denies headache(s) Psych Reports no additional complaints Physical exam (Primary Care) Vital Signs: Last Vital Signs Pulse 81 06/27/25 10:37 Resp 16 06/27/25 10:37 BP 106/74 06/27/25 10:37 Pulse Ox 96 06/27/25 10:37 Oxygen Delivery Method Room Air 06/27/25 10:37 BMI result Body Mass Index 34.5 Tobacco/Smoking Status: Tobacco use Status Tobacco use date assessed 06/27/25 06/27/25 10:44 Patient Tobacco Use Status Never used Tobacco 06/27/25 10:38 e-Cigarette/Vaping Use Never Used 06/27/25 10:38 PHQ-9: PHQ-9 Score PHQ-9: Total score 0 06/27/25 11:04 Depression Screening Interpretation: Negative Thrive Assessment: Date of Thrive Assessment Date Thrive assessed 03/27/25 06/27/25 10:38 Currently or been in a relationship where the following occur: No concerns reported Office Procedures Flu Questionnaire Does the patient have a severe egg allergy?: No Does the patient have severe life threatening allergies?: No Does the patient have a fever or illness today?: No Has the patient ever had Guillain-[place] Syndrome?: No Has the patient ever had any past reaction to a flu shot?: No Immunizations Fluarix [id number] (PF) 45 mcg (15 mcg x 3)/0.5 mL IM syringe Performing Provider: Kusum Regan MD Performing Location: [facility] Administered by: Fabienne Barrow CMA on 06/27/25 11:31 Dose Route Admin Location Dispensed Lot Number Expiration Date [facility] [place] [employer] 0.5 mL IM Left Deltoid 0.5 mL [id number] 04/09/26 [id number] [employer] VIS Given Date VIS Provided VIS Publication Date 06/27/25 Single Vaccine 24 Eligibility Eligibility Date Funding Source Not [facility] Eligible 06/27/25 Private Coding Diagnoses Lateral pain of right hip M25.551 Vitamin D deficiency E55.9 Carpal tunnel syndrome on both sides G56.03 Ulcerative proctitis with complication K51.219 Digestive disease complication type: unspecified complication External hemorrhoid K64.4 Advance directive discussed with patient Z71.89 Annual visit for general adult medical examination with abnormal findings Z00.01 Additional Codes KJ-7 Assessment Billing - KJ-7 Assessment Tool: KJ-7 Assessment 21995 ([id number]) PHQ-9 - 82766 - PHQ-9 Billing: Yes ([id number]) Assessment & Plan Assessment & Plan (1) Lateral pain of right hip: Code(s): M25.551 - Pain in right hip Category: Medical (2) Vitamin D deficiency: Code(s): E55.9 - Vitamin D deficiency, unspecified (3) Carpal tunnel syndrome on both sides: Code(s): G56.03 - Carpal tunnel syndrome, bilateral upper limbs Category: Medical (4) Ulcerative proctitis: Code(s): K51.20 - Ulcerative (chronic) proctitis without complications Category: Medical Qualifiers: Digestive disease complication type: unspecified complication Qualified Code(s): K51.219 - Ulcerative (chronic) proctitis with unspecified complications (5) External hemorrhoid: Code(s): K64.4 - Residual hemorrhoidal skin tags Category: Medical (6) Advance directive discussed with patient: Code(s): Z71.89 - Other specified counseling (7) Annual visit for general adult medical examination with abnormal findings: Code(s): Z00.01 - Encounter for general adult medical examination with abnormal findings Orders: Orders PT Evaluation and Treatment Today M25.551 - Pain in right hip Influenza [id number] Immunization Today Z23 - Encounter for immunization Vitamin D 25-OH Total Today E55.9 - Vitamin D deficiency, unspecified, Z13.220 - Encounter for screening for lipoid disorders Lipid Panel Today E55.9 - Vitamin D deficiency, unspecified, Z13.220 - Encounter for screening for lipoid disorders
== END 2025-06-27 11:34 | disposition home or self-care (01) ==
LOC: HO.HMCC 10:17
PROVIDERS: PCP Internal Medicine; Visit Provider Internal Medicine
DX: Z23 Encounter for immunization (principal)